=== PATIENT | male | born 1960 | race Caucasian/White ===

== ENCOUNTER → 2017-07-01 | Outpatient (CLI) | payer BC ==
[~2017-07-01] MED LIST: ASP81TEC PO; MULT-963 PO
== END ==
LOC: CARD 08:34
PROVIDERS: ATTEND Physician Assistant
DX: E78.5 Hyperlipidemia, unspecified (principal); E66.9 Obesity, unspecified; R06.09 Other forms of dyspnea
CPT/HCPCS: 93017

== ENCOUNTER 2018-10-19 14:58 | Outpatient (CLI) | payer BC ==
[~2018-10-19] VITALS: Ht 188 cm; Wt 142.4 kg
[2018-10-19 15:08] VITALS: BP 133/79
[2018-10-19 15:46] LABS: BASOPHILS # (AUTO) 0.1 10^3/uL (0.0-0.1); BASOPHILS % (AUTO) 1 % (0-10); EOSINOPHILS # (AUTO) 0.2 10^3/uL (0.0-0.3); EOSINOPHILS % (AUTO) 4 % (0-10); HEMATOCRIT 43 % (40-54); HEMOGLOBIN 14.7 G/DL (13.3-17.7); LYMPHOCYTES # (AUTO) 1.6 X 10^3 (1.0-4.0); LYMPHOCYTES % (AUTO) 26 % (12-44); MEAN CORPUSCULAR HEMOGLOBIN 32 PG (25-34); MEAN CORPUSCULAR HGB CONC 34 G/DL (32-36); MEAN CORPUSCULAR VOLUME 94 FL (80-99); MEAN PLATELET VOLUME 10.4 FL (7.4-10.4); MONOCYTES # (AUTO) 0.7 X 10^3 (0.0-1.0); MONOCYTES % (AUTO) 11 % (0-12); NEUTROPHILS # (AUTO) 3.6 X 10^3 (1.8-7.8); NEUTROPHILS % (AUTO) 58 % (42-75); PLATELET COUNT 240 10^3/uL (130-400); RED CELL DISTRIBUTION WIDTH 13.1 % (10.0-14.5); WHITE BLOOD COUNT 6.2 10^3/uL (4.3-11.0)
[2018-10-19 15:57] LABS: BUN/CREATININE RATIO 18; CALCIUM 9.6 MG/DL (8.5-10.1); CARBON DIOXIDE 25 MMOL/L (21-32); CHLORIDE 104 MMOL/L (98-107); CREATININE SERUM 0.92 MG/DL (0.60-1.30); GFR ESTIMATED > 60; GLUCOSE 118 MG/DL (70-105); POTASSIUM 4.1 MMOL/L (3.6-5.0); SODIUM 140 MMOL/L (135-145)
== END 2018-10-19 15:30 | disposition home or self-care (01) ==
LOC: PREOP 14:58
PROVIDERS: ATTEND Otolaryngology Otolaryngology/Facial Plastic Surgery
DX: Z01.812 Encounter for preprocedural laboratory examination (principal); Z11.2 Encounter for screening for other bacterial diseases; J34.9 Unspecified disorder of nose and nasal sinuses
CPT/HCPCS: 36415; 80048; 85025; 87081

== ENCOUNTER 2018-10-26 06:37 | Day surgery (SDC) | payer BC ==
[~2018-10-26] VITALS: Ht 188 cm; Wt 142.4 kg
--- OUTSIDE RECORDS SUMMARY | 2018-10-26 06:41 | XMS REPORT | CCD ---
Author Author Luisana Herrera Organization Luisana Herrera MD, [facility] Address [address] [place] [address] Phone Care Team Providers Care Quality Consultant Name Role Phone PP Unavailable CCM Unavailable Summary Purpose Interface Exchange Insurance Providers Payer name Policy type / Coverage type Covered democrat ID Effective Begin Date Effective End Date [facility] [id number] Unknown Family history Sister Diagnosis Age At Onset Depression Unknown Father Diagnosis Age At Onset Skin cancer Unknown Alcoholism Unknown Mother Diagnosis Age At Onset Breast cancer Unknown Social History Social History Element Codes Description Effective Dates Marital status Unknown [place] 12/25/2014 Number of children Unknown 1 12/25/2014 Employment Unknown Currently employed [employer] 12/25/[address]: 19235358 Currently smokes tobacco quit 200912/25/[address]: 325732 Currently drinks alcohol 12/25/2014 Allergies, Adverse Reactions, Alerts Substance Reaction Codes Entered Date Inactivated Date Status * NO KNOWN DRUG ALLERGIES Unknown 12/25/2014 No Inactive Date Active Past Medical History Illness Codes Condition Status Onset Date Resolved Date Cough ICD-9: 786.2 ICD-10: R05 Active 10/09/2018 Unknown Other allergic rhinitis ICD-9: 477.8 ICD-10: J30.89 Active 10/09/2018 Unknown Acute bronchitis due to other specified organisms ICD-9: 466.0 ICD-10: J20.8 Active 09/27/2018 Unknown Basal cell carcinoma of skin of nose ICD-9: 173.31 ICD-10: C44.311 Active 08/21/2018 Unknown Other obesity due to excess calories ICD-9: 278.00 ICD-10: E66.09 Active 06/07/2017 Unknown Actinic keratosis ICD- 9: 702.0 ICD-10: L57.0 Active 04/19/2018 Unknown Encounter for screening for cardiovascular disorders ICD-9: V81.2 ICD-10: Z13.6 Active 06/07/2017 Unknown Encounter for screening for malignant neoplasm of prostate ICD-9: V76.44 ICD-10: Z12.5 Active 06/07/2017 Unknown Ganglion, right hand ICD-9: 727.43 ICD-10: M67.441 Active 11/25/2016 Unknown Disorder of the skin and subcutaneous tissue, unspecified ICD-9: 709.9 ICD-10: L98.9 Active 10/27/2015 Unknown Other seborrheic keratosis ICD-9: 702.19 ICD-10: L82.1 Active 10/27/2015 Unknown Routine medical exam ICD-9: V70.0 Active 12/24/2014 Unknown Problems Condition Codes Effective Dates Condition Status Cough ICD-9: 786.2 ICD-10: R05 10/09/2018 Active Other allergic rhinitis ICD-9: 477.8 ICD-10: J30.89 10/09/2018 Active Acute bronchitis due to other specified organisms ICD-9: 466.0 ICD-10: J20.8 09/27/2018 Active Basal cell carcinoma of skin of nose ICD-9: 173.31 ICD-10: C44.311 08/21/2018 Active Other obesity due to excess calories ICD-9: 278.00 ICD-10: E66.09 06/07/2017 Active Actinic keratosis ICD- 9: 702.0 ICD-10: L57.0 04/19/2018 Active Encounter for screening for cardiovascular disorders ICD-9: V81.2 ICD-10: Z13.6 06/07/2017 Active Encounter for screening for malignant neoplasm of prostate ICD-9: V76.44 ICD-10: Z12.5 06/07/2017 Active Ganglion, right hand ICD-9: 727.43 ICD-10: M67.441 11/25/2016 Active Disorder of the skin and subcutaneous tissue, unspecified ICD-9: 709.9 ICD-10: L98.9 10/27/2015 Active Other seborrheic keratosis ICD-9: 702.19 ICD-10: L82.1 10/27/2015 Active Routine medical exam ICD-9: V70.0 12/24/2014 Active Medications Medication Codes Instructions Start Date Stop Date Status Fill Instructions Zithromax Z-Da 250 mg tablet RxNorm: 594541 Tablet(s) PO 2 pills day one and 1 pill day 2-5 10/09/2018 No Stop Date Active prednisone 20 mg tablet RxNorm: 252229 Tablet(s) PO UD 201810/13/2018 Inactive 60,60,40,40,20,20,10,10 doxycycline hyclate 100 mg capsule RxNorm: 4658417 1 Capsule(s) PO BID 09/27/2018 10/03/2018 Inactive Kenalog 40 mg/mL suspension for injection RxNorm: 7189884 Milliliter(s) Inj 09/27/2018 09/27/2018 Inactive prednisone 20 mg tablet RxNorm: 394589 2 Tablet(s) PO daily 10/01/2018 Inactive atorvastatin 10 mg tablet RxNorm: 985609 1 Tablet(s) PO QPM 04/18/2018 Inactive Lipitor 10 mg tablet RxNorm: 471615 1 Tablet(s) PO QPM 201606/07/2017 Inactive Tamiflu 75 mg capsule RxNorm: 852949 1 Capsule(s) PO daily 09/2210/01/2016 Inactive Tamiflu 75 mg capsule RxNorm: 984921 1 Capsule(s) PO daily 09/2209/21/2016 Inactive Zithromax Z-Da 250 mg tablet RxNorm: 682634 Tablet(s) PO 2 pills day one and 1 pill day 2-5 07/25/2015 05/31/2017 Inactive Voltaren 1 % topical gel RxNorm: 301284 2 TOP TID 12/25/2014 08/20/2018 Inactive Bones & Joints oral RxNorm: oral No Start Date 08/20/2018 Inactive Zithromax Z-Da 250 mg tablet RxNorm: 751647 Tablet(s) PO 2 pills day one and 1 pill day 2-5 No Start Date 07/24/2015 Inactive Medication Administered Medication Codes Instructions Start Date Status Kenalog 40 mg/mL suspension for injection RxNorm: 4685655 Milliliter 09/27/2018 No longer Active Immunizations Vaccine Codes Date Status Tetanus, Diptheria, Pertussis CVX: 113 completed Tetanus/Diptheria CVX: 113 12/16/2013 completed Assessments Condition Codes Effective Dates Cough ICD-10: R05 ICD-9: 786.2 10/09/2018 Other allergic rhinitis ICD-10: J30.89 ICD-9: 477.8 10/09/2018 Acute bronchitis due to other specified organisms ICD-10: J20.8 ICD-9: 466.0 09/27/2018 Basal cell carcinoma of skin of nose ICD-10: C44.311 ICD-9: 173.31 08/21/2018 Other obesity due to excess calories ICD-10: E66.09 ICD-9: 278.00 08/21/2018 Actinic keratosis ICD-10: L57.0 ICD-9: 702.0 04/19/2018 Encounter for screening for malignant neoplasm of prostate ICD-10: Z12.5 ICD-9: V76.44 06/07/2017 Encounter for screening for cardiovascular disorders ICD-10 : Z13.6 ICD-9: V81.2 06/07/2017 Ganglion, right hand ICD-10: M67.441 ICD-9: 727.43 11/25/2016 Other seborrheic keratosis ICD-10: L82.1 ICD-9: 702.19 10/28/2015 Disorder of the skin and subcutaneous tissue, unspecified ICD-10: L98.9 ICD-9: 709.9 10/28/2015 Routine medical exam ICD-9: V70.0 2014 Reason For Visit Reason For Visit Effective Dates Notes cough 10/09/2018 cough 09/27/2018 skin lesion 08/21/2018 well man exam (40-65 years) 04/19/2018 weight gain/obesity 06/07/2017 skin lesion 11/25/2016 mole check 10/28/2015 weight gain/obesity 12/25/2014 on back- dad has hx of skin cancer Results No Results data Review of Systems System Result Effective Dates Constitutional recent illness 10/09/2018 Constitutional No chills 10/09/2018 Constitutional No diaphoresis 10/09/2018 Constitutional No fever 10/09/2018 Constitutional fatigue 10/09/2018 Eyes No eye erythema 10/09/2018 Ears/Nose/Throat/Neck nasal allergies Ears/Nose/Throat/Neck No nasal discharge 10/09/2018 Ears/Nose/Throat/Neck No sinus congestion 10/09/2018 Ears/Nose/Throat/Neck No sore throat Ears/Nose/Throat/Neck postnasal drip Cardiovascular No chest pain/pressure Respiratory cough 10/09/2018 Respiratory chest congestion 10/09/2018 Respiratory No dyspnea 10/09/2018 Gastrointestinal No abdominal pain 2018 Neurologic No alteration of consciousness 10/09/2018 Neurologic No mental status change 2018 Constitutional recent illness 09/27/2018 Constitutional No chills 09/27/2018 Constitutional No fever 09/27/2018 Eyes No eye erythema 09/27/2018 Ears/Nose/Throat/Neck nasal allergies Ears/Nose/Throat/Neck nasal discharge Ears/Nose/Throat/Neck postnasal drip Ears/Nose/Throat/Neck sinus congestion Cardiovascular No chest pain/pressure Respiratory productive sputum 09/27/2018 Respiratory cough 09/27/2018 Respiratory wheezing 09/27/2018 Gastrointestinal No abdominal pain 2018 Musculoskeletal No joint complaint 2018 Dermatologic No rash 09/27/2018 Neurologic No alteration of consciousness 09/27/2018 Neurologic No mental status change 2018 Constitutional No recent illness 2018 Constitutional obesity 08/21/2018 Constitutional No chills 08/21/2018 Constitutional No diaphoresis 08/21/2018 Constitutional No fever 08/21/2018 Eyes No blindness 08/21/2018 Ears/Nose/Throat/Neck No nasal allergies 08/21/2018 Ears/Nose/Throat/Neck No nasal discharge 08/21/2018 Cardiovascular No chest pain/pressure 10/2018 Cardiovascular No dyspnea 08/21/2018 Respiratory No chest congestion 2018 Respiratory No cough 08/21/2018 Respiratory No dyspnea 08/21/2018 Gastrointestinal No abdominal pain 2018 Gastrointestinal No constipation 2018 Gastrointestinal No diarrhea 08/21/2018 Gastrointestinal No nausea 08/21/2018 Gastrointestinal No vomiting 08/21/2018 Musculoskeletal No joint complaint 2018 Dermatologic No rash 08/21/2018 Dermatologic skin lesion 08/21/2018 Neurologic No alteration of consciousness 08/21/2018 Neurologic No mental status change 2018 Constitutional No recent illness 2017 Constitutional obesity 04/19/2018 Constitutional No chills 04/19/2018 Constitutional No diaphoresis 04/19/2018 Constitutional No fever 04/19/2018 Eyes No eye erythema 04/19/2018 Ears/Nose/Throat/Neck No nasal allergies 04/19/2018 Ears/Nose/Throat/Neck No nasal discharge 04/19/2018 Cardiovascular No chest pain/pressure 09/2017 Cardiovascular No dyspnea 04/19/2018 Respiratory No chest congestion 2017 Respiratory No cough 04/19/2018 Respiratory No dyspnea 04/19/2018 Gastrointestinal No abdominal pain 2017 Gastrointestinal No constipation 2017 Gastrointestinal No diarrhea 04/19/2018 Gastrointestinal No nausea 04/19/2018 Gastrointestinal No vomiting 04/19/2018 Musculoskeletal No joint complaint 2017 Dermatologic No rash 04/19/2018 Neurologic No alteration of consciousness 04/19/2018 Neurologic No mental status change 2017 Dermatologic skin lesion 04/19/2018 Constitutional No recent illness 2016 Constitutional obesity 06/07/2017 Constitutional No chills 06/07/2017 Constitutional No diaphoresis 06/07/2017 Constitutional No fever 06/07/2017 Eyes No eye erythema 06/07/2017 Ears/Nose/Throat/Neck No nasal allergies 06/07/2017 Ears/Nose/Throat/Neck No nasal discharge 06/07/2017 Cardiovascular No chest pain/pressure Cardiovascular No dyspnea 06/07/2017 Cardiovascular exercise intolerance 06/07 Respiratory No cough 06/07/2017 Respiratory No chest congestion 2016 Respiratory dyspnea on exertion 2016 Respiratory No dyspnea 06/07/2017 Gastrointestinal No abdominal pain 2016 Gastrointestinal No constipation 2016 Gastrointestinal No diarrhea 06/07/2017 Gastrointestinal No vomiting 06/07/2017 Gastrointestinal No nausea 06/07/2017 Musculoskeletal No joint complaint 2016 Dermatologic No rash 06/07/2017 Neurologic No alteration of consciousness 06/07/2017 Neurologic No mental status change 2016 Constitutional No recent illness 2016 Constitutional No diaphoresis 11/25/2016 Constitutional No chills 11/25/2016 Constitutional No fever 11/25/2016 Eyes No eye erythema 11/25/2016 Ears/Nose/Throat/Neck No nasal allergies 11/25/2016 Ears/Nose/Throat/Neck No nasal discharge 11/25/2016 Cardiovascular No chest pain/pressure 05/2017 Cardiovascular No dyspnea 11/25/2016 Respiratory No cough 11/25/2016 Respiratory No dyspnea 11/25/2016 Gastrointestinal No abdominal pain 2016 Dermatologic cyst 11/25/2016 Neurologic No alteration of consciousness 11/25/2016 Neurologic No mental status change 2016 Constitutional No recent illness 2015 Eyes No eye erythema 10/28/2015 Eyes No vision change 10/28/2015 Ears/Nose/Throat/Neck No sore throat 06/2016 Ears/Nose/Throat/Neck No postnasal drip 10/28/2015 Ears/Nose/Throat/Neck No sinus congestion 10/28/2015 Cardiovascular No chest pain/pressure 06/2016 Respiratory No cough 10/28/2015 Gastrointestinal No vomiting 10/28/2015 Psychiatric No anxiety 10/28/2015 Psychiatric No depression 10/28/2015 Ears/Nose/Throat/Neck No hoarseness 10/27 Cardiovascular No dyspnea 10/28/2015 Dermatologic skin lesion 10/28/2015 Neurologic No alteration of consciousness 10/28/2015 Neurologic No mental status change 2015 Constitutional No recent illness 2014 Constitutional No chills 12/25/2014 Constitutional No fatigue 12/25/2014 Constitutional No fever 12/25/2014 Constitutional No insomnia 12/25/2014 Constitutional No malaise 12/25/2014 Eyes No blindness 12/25/2014 Eyes No vision change 12/25/2014 Ears/Nose/Throat/Neck No dental pain 04/2015 Ears/Nose/Throat/Neck No dizziness 2014 Ears/Nose/Throat/Neck No dysphagia 2014 Ears/Nose/Throat/Neck No headache 2014 Ears/Nose/Throat/Neck No hearing loss 04/2015 Ears/Nose/Throat/Neck No nasal allergies 12/25/2014 Ears/Nose/Throat/Neck No sore throat 04/2015 Ears/Nose/Throat/Neck No postnasal drip 12/25/2014 Ears/Nose/Throat/Neck No sinus congestion 12/25/2014 Cardiovascular No chest pain/pressure 04/2015 Cardiovascular No dyspnea 12/25/2014 Cardiovascular No edema 12/25/2014 Cardiovascular No exercise intolerance Cardiovascular No fatigue 12/25/2014 Cardiovascular No near-syncope/dizziness 12/25/2014 Respiratory No chest tightness 2014 Respiratory No cough 12/25/2014 Respiratory No dyspnea 12/25/2014 Respiratory No pedal edema 12/25/2014 Gastrointestinal No abdominal pain 2014 Gastrointestinal No constipation 2014 Gastrointestinal No diarrhea 12/25/2014 Gastrointestinal No gastroesophageal reflux 12/25/2014 Gastrointestinal No nausea 12/25/2014 Gastrointestinal No vomiting 12/25/2014 Genitourinary/Nephrology No dysuria 12/25 Genitourinary/Nephrology No nocturia 04/2015 Genitourinary/Nephrology No urinary incontinence 12/25/2014 Musculoskeletal stiffness 12/25/2014 Musculoskeletal No swelling 12/25/2014 Musculoskeletal No muscle weakness 2014 Musculoskeletal No myalgias 12/25/2014 Dermatologic No rash 12/25/2014 Dermatologic No sores 12/25/2014 Dermatologic No scar 12/25/2014 Neurologic No dizziness 12/25/2014 Neurologic No headache 12/25/2014 Neurologic No neck pain 12/25/2014 Neurologic No syncope 12/25/2014 Psychiatric No anxiety 12/25/2014 Psychiatric No depression 12/25/2014 Musculoskeletal arthralgia(s) 12/25/2014 Physical Exam Exam Name System Name Item Name Status Result Effective Dates Notes Full Exam - General 1994 Constitutional general appearance Overall: well developed 10/09/2018 None Full Exam - General 1994 Constitutional general appearance Overall: in no acute distress 10/09/2018 None Full Exam - General 1994 Constitutional general appearance Overall: well nourished 10/09/2018 None Full Exam - General 1994 Eyes conjunctiva /eyelids Overall: conjunctiva clear 10/09/2018 None Full Exam - General 1994 Eyes conjunctiva /eyelids Overall: cornea clear 10/09/2018 None Full Exam - General 1994 Eyes conjunctiva /eyelids Overall: eyelids normal 10/09/2018 None Full Exam - General 1994 Ears/Nose/Throat otoscopic exam Overall: tympanic membranes clear 10/09/2018 None Full Exam - General 1994 Ears/Nose/Throat otoscopic exam Overall: external auditory canals clear 10/09/2018 None Full Exam - General 1994 Ears/Nose/Throat lips/teeth/gingiva Overall: benign lips 10/09/2018 None Full Exam - General 1994 Ears/Nose/Throat oral cavity/pharynx/larynx Overall: oral mucosa clear 10/09/2018 None Full Exam - General 1994 Ears/Nose/Throat oral cavity/pharynx/larynx Overall: oropharyngeal mucosa clear 10/09/2018 None Full Exam - General 1994 Ears/Nose/Throat oral cavity/pharynx/larynx Posterior Pharynx: clear post nasal drainage 10/09/2018 None Full Exam - General 1994 Respiratory respiratory effort/rhythm Overall: normal rate 10/09/2018 None Full Exam - General 1994 Respiratory respiratory effort/rhythm Overall: no retractions 10/09/2018 None Full Exam - General 1994 Respiratory auscultation Overall: breath sounds clear bilaterally 10/09/2018 None Full Exam - General 1994 Respiratory auscultation Diffuse: diminished 10/09/2018 None Full Exam - General 1994 Cardiovascular auscultation of heart Overall: regular rate 10/09/2018 None Full Exam - General 1994 Cardiovascular auscultation of heart Overall: normal heart sounds 10/09/2018 None Full Exam - General 1994 Musculoskeletal head and neck Overall: head atraumatic 10/09/2018 None Full Exam - General 1994 Musculoskeletal gait and station Overall: normal gait 10/09/2018 None Full Exam - General 1994 Musculoskeletal gait and station Overall: normal station 10/09/2018 None Full Exam - General 1994 Neurologic cranial nerves Overall: crainial nerves 2 - 12 grossly intact 10/09/2018 None Full Exam - General 1994 Psychiatric orientation/consciousness Overall: oriented to person, place and time 10/09/2018 None Full Exam - General 1994 Psychiatric mood and affect Overall: normal mood and affect 10/09/2018 None Full Exam - General 1994 Constitutional general appearance Overall: well developed 09/27/2018 None Full Exam - General 1994 Constitutional general appearance Overall: in no acute distress 09/27/2018 None Full Exam - General 1994 Constitutional general appearance Overall: well nourished 09/27/2018 None Full Exam - General 1994 Eyes conjunctiva /eyelids Overall: conjunctiva clear 09/27/2018 None Full Exam - General 1994 Eyes conjunctiva /eyelids Overall: eyelids normal 09/27/2018 None Full Exam - General 1994 Ears/Nose/Throat otoscopic exam Overall: external auditory canals clear 09/27/2018 None Full Exam - General 1994 Ears/Nose/Throat otoscopic exam Tympanic membrane: air- fluid level 09/27/2018 None Full Exam - General 1995 Ears/Nose/Throat lips/teeth/gingiva Overall: benign lips 09/27/2018 None Full Exam - General 1995 Ears/Nose/Throat oral cavity/pharynx/larynx Overall: oral mucosa clear 09/27/2018 None Full Exam - General 1995 Ears/Nose/Throat oral cavity/pharynx/larynx Posterior Pharynx: clear post nasal drainage 09/27/2018 None Full Exam - General 1994 Respiratory auscultation Diffuse: diminished 09/27/2018 None Full Exam - General 1994 Respiratory auscultation Lower lung field: expiratory wheezes 09/27/2018 faint Full Exam - General 1994 Respiratory respiratory effort/rhythm Overall: no retractions 09/27/2018 None Full Exam - General 1994 Respiratory respiratory effort/rhythm Overall: normal rate 09/27/2018 None Full Exam - General 1994 Cardiovascular auscultation of heart Overall: regular rate 09/27/2018 None Full Exam - General 1994 Cardiovascular auscultation of heart Overall: normal heart sounds 09/27/2018 None Full Exam - General 1994 Lymphatic neck nodes Overall: anterior cervical chain benign 09/27/2018 None Full Exam - General 1994 Lymphatic neck nodes Overall: posterior cervical chain benign 09/27/2018 None Full Exam - General 1994 Integument inspection of skin Overall: few scattered moles, no gross abnormalities 09/27/2018 None Full Exam - General 1994 Neurologic cranial nerves Overall: crainial nerves 2 - 12 grossly intact 09/27/2018 None Full Exam - General 1994 Psychiatric orientation/consciousness Overall: oriented to person, place and time 09/27/2018 None Full Exam - General 1994 Psychiatric mood and affect Overall: normal mood and affect 09/27/2018 None Full Exam - General 1994 Constitutional general appearance Overall: well developed 08/21/2018 None Full Exam - General 1994 Constitutional general appearance Overall: in no acute distress 08/21/2018 None Full Exam - General 1994 Constitutional general appearance Overall: well nourished 08/21/2018 None Full Exam - General 1994 Constitutional general appearance Hygiene/Attention to Grooming: good hygiene 08/21/2018 None Full Exam - General 1994 Eyes conjunctiva /eyelids Overall: conjunctiva clear 08/21/2018 None Full Exam - General 1995 Eyes conjunctiva /eyelids Overall: cornea clear 08/21/2018 None Full Exam - General 1994 Eyes conjunctiva /eyelids Overall: eyelids normal 08/21/2018 None Full Exam - General 1994 Eyes pupils and irises Overall: pupils equal, round, reactive to light and accomodation 08/21/2018 None Full Exam - General 1994 Ears/Nose/Throat otoscopic exam Overall: external auditory canals clear 08/21/2018 None Full Exam - General 1994 Ears/Nose/Throat otoscopic exam Overall: tympanic membranes clear 08/21/2018 None Full Exam - General 1994 Ears/Nose/Throat lips/teeth/gingiva Overall: benign lips 08/21/2018 None Full Exam - General 1994 Ears/Nose/Throat oral cavity/pharynx/larynx Overall: oral mucosa clear 08/21/2018 None Full Exam - General 1994 Ears/Nose/Throat oral cavity/pharynx/larynx Overall: oropharyngeal mucosa clear 08/21/2018 None Full Exam - General 1994 Respiratory auscultation Overall: breath sounds clear bilaterally 08/21/2018 None Full Exam - General 1994 Respiratory respiratory effort/rhythm Overall: no retractions 08/21/2018 None Full Exam - General 1994 Respiratory respiratory effort/rhythm Overall: normal rate 08/21/2018 None Full Exam - General 1994 Cardiovascular extremities Overall: no clubbing 08/21/2018 None Full Exam - General 1994 Cardiovascular auscultation of heart Overall: regular rate 08/21/2018 None Full Exam - General 1994 Cardiovascular auscultation of heart Overall: normal heart sounds 08/21/2018 None Full Exam - General 1994 Abdomen abdominal exam Overall: no tenderness 08/21/2018 None Full Exam - General 1994 Abdomen abdominal exam Overall: normal bowel sounds 08/21/2018 None Full Exam - General 1994 Lymphatic neck nodes Overall: anterior cervical chain benign 08/21/2018 None Full Exam - General 1994 Lymphatic neck nodes Overall: posterior cervical chain benign 08/21/2018 None Full Exam - General 1994 Musculoskeletal spine, ribs and pelvis Overall: good posture 08/21/2018 None Full Exam - General 1994 Musculoskeletal gait and station Overall: normal gait 08/21/2018 None Full Exam - General 1994 Musculoskeletal gait and station Overall: normal station 08/21/2018 None Full Exam - General 1994 Musculoskeletal head and neck Overall: head atraumatic 08/21/2018 None Full Exam - General 1994 Integument inspection of skin Location: face 08/21/2018 left lateral nose - [place] Full Exam - General 1994 Neurologic cranial nerves Overall: crainial nerves 2 - 12 grossly intact 08/21/2018 None Full Exam - General 1994 Psychiatric orientation/consciousness Overall: oriented to person, place and time 08/21/2018 None Full Exam - General 1994 Psychiatric mood and affect Overall: normal mood and affect 08/21/2018 None Full Exam - General 1994 Psychiatric appearance Overall: well-groomed, good eye contact 08/21/2018 None Full Exam - General 1994 Constitutional general appearance Overall: well developed 04/19/2018 None Full Exam - General 1994 Constitutional general appearance Overall: in no acute distress 04/19/2018 None Full Exam - General 1994 Constitutional general appearance Overall: well nourished 04/19/2018 None Full Exam - General 1994 Constitutional general appearance Hygiene/Attention to Grooming: good hygiene 04/19/2018 None Full Exam - General 1994 Eyes conjunctiva /eyelids Overall: conjunctiva clear 04/19/2018 None Full Exam - General 1994 Eyes conjunctiva /eyelids Overall: cornea clear 04/19/2018 None Full Exam - General 1994 Eyes conjunctiva /eyelids Overall: eyelids normal 04/19/2018 None Full Exam - General 1994 Eyes pupils and irises Overall: pupils equal, round, reactive to light and accomodation 04/19/2018 None Full Exam - General 1994 Ears/Nose/Throat otoscopic exam Overall: external auditory canals clear 04/19/2018 None Full Exam - General 1994 Ears/Nose/Throat otoscopic exam Overall: tympanic membranes clear 04/19/2018 None Full Exam - General 1994 Ears/Nose/Throat lips/teeth/gingiva Overall: benign lips 04/19/2018 None Full Exam - General 1994 Ears/Nose/Throat oral cavity/pharynx/larynx Overall: oral mucosa clear 04/19/2018 None Full Exam - General 1994 Ears/Nose/Throat oral cavity/pharynx/larynx Overall: oropharyngeal mucosa clear 04/19/2018 None Full Exam - General 1994 Respiratory auscultation Overall: breath sounds clear bilaterally 04/19/2018 None Full Exam - General 1994 Respiratory respiratory effort/rhythm Overall: no retractions 04/19/2018 None Full Exam - General 1994 Respiratory respiratory effort/rhythm Overall: normal rate 04/19/2018 None Full Exam - General 1994 Cardiovascular extremities Overall: no clubbing 04/19/2018 None Full Exam - General 1994 Cardiovascular auscultation of heart Overall: regular rate 04/19/2018 None Full Exam - General 1994 Cardiovascular auscultation of heart Overall: normal heart sounds 04/19/2018 None Full Exam - General 1994 Abdomen abdominal exam Overall: no tenderness 04/19/2018 None Full Exam - General 1994 Abdomen abdominal exam Overall: normal bowel sounds 04/19/2018 None Full Exam - General 1994 Lymphatic neck nodes Overall: anterior cervical chain benign 04/19/2018 None Full Exam - General 1994 Lymphatic neck nodes Overall: posterior cervical chain benign 04/19/2018 None Full Exam - General 1994 Musculoskeletal spine, ribs and pelvis Overall: good posture 04/19/2018 None Full Exam - General 1994 Musculoskeletal gait and station Overall: normal gait 04/19/2018 None Full Exam - General 1994 Musculoskeletal gait and station Overall: normal station 04/19/2018 None Full Exam - General 1994 Musculoskeletal head and neck Overall: head atraumatic 04/19/2018 None Full Exam - General 1994 Neurologic cranial nerves Overall: crainial nerves 2 - 12 grossly intact 04/19/2018 None Full Exam - General 1994 Psychiatric orientation/consciousness Overall: oriented to person, place and time 04/19/2018 None Full Exam - General 1994 Psychiatric mood and affect Overall: normal mood and affect 04/19/2018 None Full Exam - General 1994 Psychiatric appearance Overall: well-groomed, good eye contact 04/19/2018 None Full Exam - General 1994 Integument inspection of skin Location: face 04/19/2018 left lateral nose - [place] Full Exam - General 1994 Constitutional general appearance Hygiene/Attention to Grooming: good hygiene 06/07/2017 None Full Exam - General 1994 Eyes conjunctiva /eyelids Overall: conjunctiva clear 06/07/2017 None Full Exam - General 1994 Eyes conjunctiva /eyelids Overall: cornea clear 06/07/2017 None Full Exam - General 1994 Eyes conjunctiva /eyelids Overall: eyelids normal 06/07/2017 None Full Exam - General 1994 Eyes pupils and irises Overall: pupils equal, round, reactive to light and accomodation 06/07/2017 None Full Exam - General 1994 Ears/Nose/Throat otoscopic exam Overall: external auditory canals clear 06/07/2017 None Full Exam - General 1994 Ears/Nose/Throat otoscopic exam Overall: tympanic membranes clear 06/07/2017 None Full Exam - General 1994 Ears/Nose/Throat lips/teeth/gingiva Overall: benign lips 06/07/2017 None Full Exam - General 1994 Ears/Nose/Throat oral cavity/pharynx/larynx Overall: oral mucosa clear 06/07/2017 None Full Exam - General 1994 Ears/Nose/Throat oral cavity/pharynx/larynx Overall: oropharyngeal mucosa clear 06/07/2017 None Full Exam - General 1994 Respiratory auscultation Overall: breath sounds clear bilaterally 06/07/2017 None Full Exam - General 1994 Respiratory respiratory effort/rhythm Overall: no retractions 06/07/2017 None Full Exam - General 1994 Respiratory respiratory effort/rhythm Overall: normal rate 06/07/2017 None Full Exam - General 1994 Cardiovascular extremities Overall: no clubbing 06/07/2017 None Full Exam - General 1994 Cardiovascular auscultation of heart Overall: regular rate 06/07/2017 None Full Exam - General 1994 Cardiovascular auscultation of heart Overall: normal heart sounds 06/07/2017 None Full Exam - General 1994 Abdomen abdominal exam Overall: no tenderness 06/07/2017 None Full Exam - General 1994 Abdomen abdominal exam Overall: normal bowel sounds 06/07/2017 None Full Exam - General 1994 Lymphatic neck nodes Overall: anterior cervical chain benign 06/07/2017 None Full Exam - General 1994 Lymphatic neck nodes Overall: posterior cervical chain benign 06/07/2017 None Full Exam - General 1994 Musculoskeletal spine, ribs and pelvis Overall: good posture 06/07/2017 None Full Exam - General 1994 Musculoskeletal head and neck Overall: head atraumatic 06/07/2017 None Full Exam - General 1994 Neurologic cranial nerves Overall: crainial nerves 2 - 12 grossly intact 06/07/2017 None Full Exam - General 1994 Psychiatric orientation/consciousness Overall: oriented to person, place and time 06/07/2017 None Full Exam - General 1994 Psychiatric mood and affect Overall: normal mood and affect 06/07/2017 None Full Exam - General 1994 Constitutional general appearance Overall: well developed 06/07/2017 None Full Exam - General 1994 Constitutional general appearance Overall: in no acute distress 06/07/2017 None Full Exam - General 1994 Constitutional general appearance Overall: well nourished 06/07/2017 None Full Exam - General 1994 Musculoskeletal gait and station Overall: normal gait 06/07/2017 None Full Exam - General 1994 Musculoskeletal gait and station Overall: normal station 06/07/2017 None Full Exam - General 1994 Psychiatric appearance Overall: well-groomed, good eye contact 06/07/2017 None Full Exam - Dermatology Constitutional general appearance Overall: well nourished 11/25/2016 None Full Exam - Dermatology Constitutional general appearance Overall: well developed 11/25/2016 None Full Exam - Dermatology Constitutional general appearance Overall: in no acute distress 11/25/2016 None Full Exam - Dermatology Eyes conjunctiva/ eyelids Overall: clear conjunctiva bilaterally 11/25/2016 None Full Exam - Dermatology Eyes conjunctiva/ eyelids Overall: normal eyelids 11/25/2016 None Full Exam - Dermatology Ears/Nose/Throat lips/teeth/gingiva Overall: benign lips 11/25/2016 None Full Exam - Dermatology Ears/Nose/Throat oropharynx Overall: clear oral mucosa 11/25/2016 None Full Exam - Dermatology Respiratory auscultation Overall: breath sounds clear bilaterally 11/25/2016 None Full Exam - Dermatology Respiratory respiratory effort/rhythm Overall: no retractions 11/25/2016 None Full Exam - Dermatology Respiratory respiratory effort/rhythm Overall: normal rate 11/25/2016 None Full Exam - Dermatology Musculoskeletal gait and station Overall: normal gait 11/25/2016 None Full Exam - Dermatology Musculoskeletal gait and station Overall: normal station 11/25/2016 None Full Exam - Dermatology Musculoskeletal spine, ribs and pelvis Overall: good posture 11/25/2016 None Full Exam - Dermatology Musculoskeletal head and neck Overall: head atraumatic 11/25/2016 None Full Exam - Dermatology Integument insp & palp - right upper extremity Lesion: cyst 11/25/2016 ganglion Full Exam - Dermatology Integument insp & palp - right upper extremity Location: on the fingers 11/25/2016 None Full Exam - Dermatology Integument insp & palp - right upper extremity Consistency: non-tender 11/25/2016 None Full Exam - Dermatology Psychiatric orientation Overall: oriented to person, place and time 11/25/2016 None Full Exam - Dermatology Psychiatric mood and affect Overall: normal mood and affect 11/25/2016 None Full Exam - General 1994 Constitutional general appearance Development: well developed 10/28/2015 None Full Exam - General 1994 Constitutional general appearance Development: appears stated age 0410/28/2015 None Full Exam - General 1994 Constitutional general appearance Hygiene/Attention to Grooming: good hygiene 10/28/2015 None Full Exam - General 1994 Eyes conjunctiva /eyelids Overall: conjunctiva clear 10/28/2015 None Full Exam - General 1994 Eyes conjunctiva /eyelids Overall: cornea clear 10/28/2015 None Full Exam - General 1994 Eyes conjunctiva /eyelids Overall: eyelids normal 10/28/2015 None Full Exam - General 1994 Eyes pupils and irises Overall: pupils equal, round, reactive to light and accomodation 10/28/2015 None Full Exam - General 1994 Ears/Nose/Throat lips/teeth/gingiva Overall: benign lips 10/28/2015 None Full Exam - General 1994 Ears/Nose/Throat lips/teeth/gingiva Overall: normal dentition 10/28/2015 None Full Exam - General 1994 Respiratory respiratory effort/rhythm Overall: no retractions 10/28/2015 None Full Exam - General 1994 Respiratory respiratory effort/rhythm Overall: normal rate 10/28/2015 None Full Exam - General 1994 Musculoskeletal spine, ribs and pelvis Overall: good posture 10/28/2015 None Full Exam - General 1994 Neurologic cranial nerves Overall: crainial nerves 2 - 12 grossly intact 10/28/2015 None Full Exam - General 1994 Psychiatric orientation/consciousness Overall: oriented to person, place and time 10/28/2015 None Full Exam - General 1994 Psychiatric mood and affect Overall: normal mood and affect 10/28/2015 None Full Exam - General 1994 Integument inspection of skin Location: back 10/28/2015 3 seborrheic keratosis on left midline , midline, and right midline back - left midline, and midline lesions approximately dime sized, with even pigmentation, right midline lesion approximately dime sized, with erythematous base. Full Exam - General 1994 Constitutional general appearance Development: well developed 12/25/2014 None Full Exam - General 1994 Constitutional general appearance Development: appears stated age 0612/25/2014 None Full Exam - General 1994 Constitutional general appearance Hygiene/Attention to Grooming: good hygiene 12/25/2014 None Full Exam - General 1994 Eyes conjunctiva /eyelids Overall: conjunctiva clear 12/25/2014 None Full Exam - General 1994 Eyes conjunctiva /eyelids Overall: cornea clear 12/25/2014 None Full Exam - General 1994 Eyes conjunctiva /eyelids Overall: eyelids normal 12/25/2014 None Full Exam - General 1994 Eyes pupils and irises Overall: pupils equal, round, reactive to light and accomodation 12/25/2014 None Full Exam - General 1994 Ears/Nose/Throat otoscopic exam Overall: external auditory canals clear 12/25/2014 None Full Exam - General 1994 Ears/Nose/Throat otoscopic exam Overall: tympanic membranes clear 12/25/2014 None Full Exam - General 1994 Ears/Nose/Throat lips/teeth/gingiva Overall: benign lips 12/25/2014 None Full Exam - General 1994 Ears/Nose/Throat lips/teeth/gingiva Overall: normal dentition 12/25/2014 None Full Exam - General 1994 Ears/Nose/Throat oral cavity/pharynx/larynx Overall: oral mucosa clear 12/25/2014 None Full Exam - General 1994 Ears/Nose/Throat oral cavity/pharynx/larynx Overall: oropharyngeal mucosa clear 12/25/2014 None Full Exam - General 1994 Ears/Nose/Throat oral cavity/pharynx/larynx Overall: hypopharynx benign 12/25/2014 None Full Exam - General 1994 Ears/Nose/Throat oral cavity/pharynx/larynx Overall: no masses 12/25/2014 None Full Exam - General 1994 Respiratory auscultation Overall: breath sounds clear bilaterally 12/25/2014 None Full Exam - General 1994 Respiratory respiratory effort/rhythm Overall: no retractions 12/25/2014 None Full Exam - General 1994 Respiratory respiratory effort/rhythm Overall: normal rate 12/25/2014 None Full Exam - General 1994 Cardiovascular extremities Overall: no clubbing 12/25/2014 None Full Exam - General 1994 Cardiovascular auscultation of heart Overall: regular rate 12/25/2014 None Full Exam - General 1994 Cardiovascular auscultation of heart Overall: normal heart sounds 12/25/2014 None Full Exam - General 1994 Abdomen abdominal exam Overall: no tenderness 12/25/2014 None Full Exam - General 1994 Abdomen abdominal exam Overall: normal bowel sounds 12/25/2014 None Full Exam - General 1994 Lymphatic neck nodes Overall: anterior cervical chain benign 12/25/2014 None Full Exam - General 1994 Lymphatic neck nodes Overall: posterior cervical chain benign 12/25/2014 None Full Exam - General 1994 Musculoskeletal spine, ribs and pelvis Overall: spine benign 12/25/2014 None Full Exam - General 1994 Musculoskeletal spine, ribs and pelvis Overall: sacroiliac joint benign 12/25/2014 None Full Exam - General 1994 Musculoskeletal spine, ribs and pelvis Overall: good posture 12/25/2014 None Full Exam - General 1994 Musculoskeletal head and neck Overall: head atraumatic 12/25/2014 None Full Exam - General 1994 Musculoskeletal head and neck Overall: cervical spine benign 12/25/2014 None Full Exam - General 1994 Integument inspection of skin Overall: few scattered moles, no gross abnormalities 12/25/2014 None Full Exam - General 1994 Neurologic deep tendon reflexes Overall: deep tendon reflexes intact 12/25/2014 None Full Exam - General 1994 Neurologic cranial nerves Overall: crainial nerves 2 - 12 grossly intact 12/25/2014 None Full Exam - General 1994 Psychiatric orientation/consciousness Overall: oriented to person, place and time 12/25/2014 None Full Exam - General 1994 Psychiatric mood and affect Overall: normal mood and affect 12/25/2014 None Full Exam - General 1994 Musculoskeletal upper extremity Inspection - shoulder: a normal exam 12/25/2014 None Full Exam - General 1994 Musculoskeletal upper extremity Palpation - shoulder: tenderness @ subacromial space 12/25/2014 None Full Exam - General 1994 Musculoskeletal upper extremity Palpation - shoulder: tenderness @ bicipital groove 12/25/2014 None Procedures Procedure Codes Date TRIAMCINOLONE ACET INJ NOS CPT-4: J3301 09/27/2018 Vital Signs Date Vital 10/09/2018 Blood Pressure 1: 122/78 Code : 8480-6 Heart Rate 1: 62 bpm Height: SpO2: 97% Weight: 09/27/2018 Blood Pressure 1: 126/78 Code : 8480-6 BMI: 39.7 Code : 77577-1 Heart Rate 1 : 78 bpm Height: 6'2" SpO2: 98% Weight: 309 lbs 08/21/2018 Blood Pressure 1: 112/76 Code : 8480-6 BMI: 39.7 Code : 39427-1 Heart Rate 1 : 71 bpm Height: 6'2" SpO2: 92% Weight: 309 lbs 04/19/2018 Blood Pressure 1: 134/68 Code : 8480-6 BMI: 37.0 Code : 07711-4 Heart Rate 1 : 80 bpm Height: 6'2" SpO2: 96% Weight: 288 lbs 06/07/2017 Blood Pressure 1: 130/76 Code : 8480-6 BMI: 38.5 Code : 66399-8 Heart Rate 1 : 74 bpm Height: 6'2" SpO2: 98% Weight: 300 lbs 11/25/2016 Blood Pressure 1: 122/64 Code : 8480-6 BMI: 37.7 Code : 89850-4 Heart Rate 1 : 63 bpm Height: 6'2" SpO2: 97% Weight: 294 lbs 10/28/2015 Blood Pressure 1: 124/82 Code : 8480-6 BMI: 35.7 Code : 80507-0 Heart Rate 1 : 71 bpm Height: 6'2" SpO2: 97% Weight: 278 lbs 12/25/2014 Blood Pressure 1: 124/72 Code : 8480-6 BMI: 35.8 Code : 38029-6 Heart Rate 1 : 70 bpm Height: 6'2" Weight: 279 lbs Functional Status No Functional Status data History of Present Illness Symptom Name Status Result Effective Date Notes Location in the lung 10/09/2018 None Quality acute 2018 None Pertinent Findings Denies fever 10/09/2018 None Location in the lung 09/27/2018 None Quality acute 2018 None Onset and Resolution sudden in onset 09/27/2018 None Pertinent Findings Denies fever 09/27/2018 None Location maxillary sinuses 09/27/2018 None Quality acute 2018 None Pertinent Findings Denies fever 09/27/2018 None Pertinent Findings cough 09/27/2018 None Location Nose 2018 None Onset and Resolution ongoing 08/21/2018 None Onset of Symptom Denies 1+ years ago 08/21/2018 None Triggers no known associated factors 08/21/2018 None Quality enlarging 10/2018 None well man exam (40-65 years) Control partner with hysterectomy 04/19/2018 None well man exam (40-65 years) Nutrition and Exercise overweight 04/19/2018 None well man exam (40-65 years) Nutrition and Exercise regular diet 04/19/2018 None skin lesion Onset and Resolution gradual in onset 04/19/2018 None skin lesion Onset of Symptom 3 months ago 04/19/2018 None skin lesion Location Nose 04/19/2018 None skin lesion Quality enlarging 04/19/2018 None skin lesion Quality firm 04/19/2018 None skin lesion Quality non-tender 04/19/2018 None weight gain/obesity Location globally 06/07/2017 None weight gain/obesity Quality chronic 06/07/2017 None weight gain/obesity Onset and Resolution ongoing 06/07/2017 None weight gain/obesity Pertinent Findings dyspnea 06/07/2017 intermittent skin lesion Onset and Resolution gradual in onset 11/25/2016 None skin lesion Onset of Symptom 4 months ago 11/25/2016 None skin lesion Frequency of Episodes daily 11/25/2016 None skin lesion Location finger and/or fingers of right hand 11/25/2016 None skin lesion Quality enlarging 11/25/2016 None skin lesion Quality non-tender 11/25/2016 None skin lesion Quality raised 11/25/2016 None skin lesion Quality rubbery 11/25/2016 None skin lesion Quality smooth 11/25/2016 None skin lesion Quality worsening 11/25/2016 None mole check Location-Major on the back 10/28/2015 None mole check Number of Moles >10 moles 10/28/2015 3 mole check Changing Moles changing 10/28/2015 None mole check Changing Moles becoming thicker 10/28/2015 None mole check Onset and Resolution ongoing 10/28/2015 None mole check Color brown 10/28/2015 None mole check Color flesh-colored 10/28/2015 None mole check Pertinent Findings itching 10/28/2015 None weight gain/obesity Location globally 12/25/2014 None shoulder pain Quality intermittent 12/25/2014 None shoulder pain Onset and Resolution gradual in onset 12/25/2014 None shoulder pain Onset of Symptom _ years ago 12/25/2014 None shoulder pain Pertinent Findings Denies loss of range of motion 12/25/2014 None shoulder pain Pertinent Findings stiffness 12/25/2014 None shoulder pain Pertinent Findings limited range of motion 12/25/2014 None shoulder pain Pertinent Findings loss of strength 12/25/2014 None mole check Location-Major on the upper body 12/25/2014 None mole check Location-Trunk on the upper back 12/25/2014 None mole check Pertinent Findings Denies pain 12/25/2014 None mole check Pertinent Findings itching 12/25/2014 None Advance Directives No Advance Directive data Encounters Encounter Performer Location Codes Date EST. PATIENT, LEVEL III Diagnosis: Cough[ICD10: R05] Diagnosis: Other allergic rhinitis[ICD10: J30.89] Daly Herrera MD, [facility] CPT-4: 09306 10/09/2018 [id number] EST. PATIENT, LEVEL IV Diagnosis: Acute bronchitis due to other specified organisms[ICD10: J20.8] [facility] CPT-4: 04792 09/27/2018 ([id number]) 25010 EST. PATIENT, LEVEL III Diagnosis: Basal cell carcinoma of skin of nose[ICD10: C44.311] Diagnosis: Other obesity due to excess calories[ICD10: E66.09] Luisana Herrera MD, [facility] CPT-4: 21397 08/21/2018 [id number] EST. PATIENT, LEVEL III Diagnosis: Other obesity due to excess calories[ICD10: E66.09] Diagnosis: Actinic keratosis[ICD10: L57.0] Daly Herrera MD, [facility] CPT-4 : 20798 04/19/2018 ([id number]) PREV VISIT EST AGE 40-64 Diagnosis: Encounter for screening for cardiovascular disorders[ICD10: Z13.6] Diagnosis: Encounter for screening for malignant neoplasm of prostate[ICD10: Z12.5] Diagnosis: Other obesity due to excess calories[ICD10: E66.09] [facility] CPT-4: 60003 06/07/2017 [id number] EST. PATIENT, LEVEL III Diagnosis: Ganglion, right hand[ICD10: M67.441] Daly Herrera MD, [facility] CPT-4: 54663 11/25/2016 [id number] EST. PATIENT, LEVEL IV Diagnosis: Other seborrheic keratosis[ICD10: L82.1] Diagnosis: Disorder of the skin and subcutaneous tissue, unspecified[ICD10: L98.9] Daly Herrera MD, [facility] CPT-4: 84770 2015 ([id number]) PREV VISIT NEW AGE 40-64 Diagnosis: Routine medical exam[ICD9: V70.0] Luisana Herrera MD, [facility] CPT-4: 85870 12/25/2014 Plan of Care Planned Activity Notes Codes Status Date Visit Plan: Allergies - chronic - recommended pt to use allergy medication as prescribed. Pt has been counseled as to the appropriate use of the medication. Pt to call if allergy symptoms are not controlled with the medication. If using nasal spray, instructions as follows: Nasal spray- use twice daily, one spray per nostril twice daily, after 30 minutes, rinse out nose with saline spray.. Use opposite hand per nostril to spray in the nasal steroid allergy spray. URI - Pt advised to increase fluids, vitamin C. Discussed natural and expected course of this diagnosis and need to alert me if symptoms do not follow expected course, or if any worse. RX sent to patient's pharmacy. 10/09/2018 Appointment: Daly Stallings WPtel: [address] [place], [place] [id number] (30 min) Complex 10/09/2018 Patient Education: Patient Medication Summary Completed 10/09/2018 Visit Plan: Bronchitis - acute case of bronchitis identified. Pt has been given antibiotics, breathing treatments as appropriate, and pt has been instructed to call if symptoms are not improved, or if symptoms acutely worsen. 09/27/2018 Appointment: Daly Stallings WPtel[facility] ([facility] min) Complex 09/27/2018 Patient Education: Patient Medication Summary Completed 09/27/2018 Visit Plan: Skin lesion left nare - - referral to Dr. Butt for excision of the lesion on the nose. appt will be 09/02/18 @ [facility]. Obesity - chronic issue with this patient. The pt has been counseled about diet changes, calorie restriction, and need to exercise. RTC for weight check 08/21/2018 Appointment: Luisana Herrera WPtel: [facility] (15 min) Moderate 08/21/2018 Patient Education: Patient Medication Summary Completed 08/21/2018 Patient Education: Obesity Completed 08/21/2018 Visit Plan: AK - left nose - Cryotherapy of skin lesions - three cryotherapy on each lesion, dressed with neosporin and monitor lesions. Obesity - chronic issue with this patient. The pt has been counseled about diet changes, calorie restriction, and need to exercise. Pt will RTC in one month for weight check. 04/19/2018 Appointment: Daly Stallings WPtel: [facility] (15 min) Moderate 04/19/2018 Patient Education: Patient Medication Summary Completed 04/19/2018 Patient Education: Skin Cancer Completed 04/19/2018 Patient Education: Obesity Completed 04/19/2018 Care Plan: BMI Above normal followup SELF-MGMT EDUC & TRAIN 1 PT Pending 2017 Appointment: Daly Stallings WPtel: [facility] [place] (30 min) Complex 04/13/2018 Referral: Benedicto Zamora Referral Initiated 06/30/2017 Care Plan: Referral Order SNOMED-CT : [id number] Pending 06/27/2017 Visit Plan: Well Adult - pt was counseled about diet, exercise, and encouraged to follow a heart healthy diet and increase activity level. The patient was instructed to RTC yearly for well adult exams and PRN for acute illnesses. The pt was also instructed to have yearly labs for check of cholesterol, thyroid, chem panel, CBC, and renal functioning. Obesity - chronic issue with this patient. The pt has been counseled about diet changes, calorie restriction, and need to exercise. Pt will RTC in one month for weight check. 06/07/2017 Appointment: Daly Stallings WPtel: [facility] (30 min) Complex 06/07/2017 Patient Education: Patient Medication Summary Completed 06/07/2017 Patient Education: Smoking and Tobacco Addiction Completed 06/07/2017 Patient Education: Obesity Completed 06/07/2017 Visit Plan: Ganglion Cyst - Benign - pt is to notify clinic if symptoms do not improve, if they worsen, or with any questions or concerns - will refer if pt decides that he would like it removed. 11/25/2016 Appointment: Daly Stallings WPtel: [facility] (30 min) Complex 11/25/2016 Patient Education: Patient Medication Summary Completed 11/25/2016 Patient Education: Smoking and Tobacco Addiction Completed 11/25/2016 Patient Education: Obesity Completed 11/25/2016 Referral: Richa Rosales WPtel: Referral Initiated 11/13/2015 Visit Plan: Skin changes - 3 lesions on the back - advised pt to use antibiotic ointment, will refer to dermatology for skin lesion removal. 10/28/2015 Appointment: Kitty Valadez WPtel: [phone] [place] (15 min) Moderate 10/28/2015 Patient Education: Patient Medication Summary Completed 10/28/2015 Patient Education: Smoking and Tobacco Addiction Completed 10/28/2015 Care Plan: Referral Order SNOMED-CT : [id number] Pending 10/28/2015 Visit Plan: Well Adult - pt was counseled about diet, exercise, and encouraged to follow a heart healthy diet and increase activity level. The patient was instructed to RTC yearly for well adult exams and PRN for acute illnesses. The pt was also instructed to have yearly labs for check of cholesterol, thyroid, chem panel, CBC, and renal functioning. Biceps tendinitis - pt to do exercises as directed, ant-inflammatories directed to be taken per RX instructions and pt to call if symptoms are not improved 12/25/2014 Appointment: Luisana Herrera WPtel: [facility] [place] [facility] New Patient 12/25/2014 Patient Education: Patient Medication Summary Completed 12/25/2014 Referral: Benedicto Zamora Referral Initiated Referral: Richa Rosales WPtel: Referral Initiated Instructions Comment . AK - left nose - Cryotherapy of skin lesions - three cryotherapy on each lesion, dressed with neosporin and monitor lesions. Obesity - chronic issue with this patient. The pt has been counseled about diet changes, calorie restriction, and need to exercise. Pt will RTC in one month for weight check. . Skin changes - 3 lesions on the back - advised pt to use antibiotic ointment, will refer to dermatology for skin lesion removal. . Well Adult - pt was counseled about diet, exercise, and encouraged to follow a heart healthy diet and increase activity level. The patient was instructed to RTC yearly for well adult exams and PRN for acute illnesses. The pt was also instructed to have yearly labs for check of cholesterol, thyroid, chem panel, CBC, and renal functioning. Obesity - chronic issue with this patient. The pt has been counseled about diet changes, calorie restriction, and need to exercise. Pt will RTC in one month for weight check. start allergy medicine once Prednisone taper down and Z-pack if you need it Sent to [facility]. Allergies - chronic - recommended pt to use allergy medication as prescribed. Pt has been counseled as to the appropriate use of the medication. Pt to call if allergy symptoms are not controlled with the medication. If using nasal spray, instructions as follows: Nasal spray- use twice daily, one spray per nostril twice daily, after 30 minutes, rinse out nose with saline spray.. Use opposite hand per nostril to spray in the nasal steroid allergy spray. URI - Pt advised to increase fluids, vitamin C. Discussed natural and expected course of this diagnosis and need to alert me if symptoms do not follow expected course, or if any worse. RX sent to patient's pharmacy. . Bronchitis - acute case of bronchitis identified. Pt has been given antibiotics, breathing treatments as appropriate, and pt has been instructed to call if symptoms are not improved, or if symptoms acutely worsen. . Ganglion Cyst - Benign - pt is to notify clinic if symptoms do not improve, if they worsen, or with any questions or concerns - will refer if pt decides that he would like it removed. . Well Adult - pt was counseled about diet, exercise, and encouraged to follow a heart healthy diet and increase activity level. The patient was instructed to RTC yearly for well adult exams and PRN for acute illnesses. The pt was also instructed to have yearly labs for check of cholesterol, thyroid, chem panel, CBC, and renal functioning. Biceps tendinitis - pt to do exercises as directed, ant-inflammatories directed to be taken per RX instructions and pt to call if symptoms are not improved 09/02/18 - Tuesday - 1015AM - be there at 10am to fill out paperwork . Skin lesion left nare - - referral to Dr. Butt for excision of the lesion on the nose. appt will be 09/02/18 @ 1015AM. Obesity - chronic issue with this patient. The pt has been counseled about diet changes, calorie restriction, and need to exercise. RTC for weight check
--- OUTSIDE RECORDS SUMMARY | 2018-10-26 06:41 | XMS REPORT | CCD ---
Author Author Luisana Herrera Organization Luisana Herrera MD, [facility] Address [address] [place] [address] Phone Care Team Providers Care Web Content Producer Name Role Phone PP Unavailable CCM Unavailable Summary Purpose Interface Exchange Insurance Providers Payer name Policy type / Coverage type Covered constitution party ID Effective Begin Date Effective End Date [facility] [id number] Unknown Family history Sister Diagnosis Age At Onset Depression Unknown Father Diagnosis Age At Onset Skin cancer Unknown Alcoholism Unknown Mother Diagnosis Age At Onset Breast cancer Unknown Social History Social History Element Codes Description Effective Dates Marital status Unknown Sharon 12/25/2014 Number of children Unknown 1 12/25/2014 Employment Unknown Currently employed [employer] 12/25/[address]: 94340181 Currently smokes tobacco quit 200912/25/[address]: 684383 Currently drinks alcohol 12/25/2014 Allergies, Adverse Reactions, [...] Instructions Zithromax Z-Da 250 mg tablet RxNorm: 470557 Tablet(s) PO 2 pills day one and 1 pill day 2-5 10/09/2018 No Stop Date Active prednisone 20 mg tablet RxNorm: 729745 Tablet(s) PO UD 201810/13/2018 Active 60,60,40,40,20,20,10,10 doxycycline hyclate 100 mg capsule RxNorm: 4689288 1 Capsule(s) PO BID 09/27/2018 10/03/2018 Inactive Kenalog 40 mg/mL suspension for injection RxNorm: 7575438 Milliliter(s) Inj 09/27/2018 09/27/2018 Inactive prednisone 20 mg tablet RxNorm: 243799 2 Tablet(s) PO daily 10/01/2018 Inactive atorvastatin 10 mg tablet RxNorm: 180247 1 Tablet(s) PO QPM 04/18/2018 Inactive Lipitor 10 mg tablet RxNorm: 826117 1 Tablet(s) PO QPM 201606/07/2017 Inactive Tamiflu 75 mg capsule RxNorm: 761811 1 Capsule(s) PO daily 09/2210/01/2016 Inactive Tamiflu 75 mg capsule RxNorm: 359883 1 Capsule(s) PO daily 09/2209/21/2016 Inactive Zithromax Z-Da 250 mg tablet RxNorm: 866351 Tablet(s) PO 2 pills day one and 1 pill day 2-5 07/25/2015 05/31/2017 Inactive Voltaren 1 % topical gel RxNorm: 004663 2 TOP TID 12/25/2014 08/20/2018 Inactive Bones & Joints oral RxNorm: oral No Start Date 08/20/2018 Inactive Zithromax Z-Da 250 mg tablet RxNorm: 362359 Tablet(s) PO 2 pills day one and 1 pill day 2-5 No Start Date 07/24/2015 Inactive Medication Administered Medication Codes Instructions Start Date Status Kenalog 40 mg/mL suspension for injection RxNorm: 4641325 Milliliter 09/27/2018 No longer Active Immunizations Vaccine [...] Code : 8480-6 BMI: 39.7 Code : 23874-6 Heart Rate 1 : 78 bpm Height: 6'2" SpO2: 98% Weight: 309 lbs 08/21/2018 Blood Pressure 1: 112/76 Code : 8480-6 BMI: 39.7 Code : 72245-9 Heart Rate 1 : 71 bpm Height: 6'2" SpO2: 92% Weight: 309 lbs 04/19/2018 Blood Pressure 1: 134/68 Code : 8480-6 BMI: 37.0 Code : 81496-8 Heart Rate 1 : 80 bpm Height: 6'2" SpO2: 96% Weight: 288 lbs 06/07/2017 Blood Pressure 1: 130/76 Code : 8480-6 BMI: 38.5 Code : 92511-6 Heart Rate 1 : 74 bpm Height: 6'2" SpO2: 98% Weight: 300 lbs 11/25/2016 Blood Pressure 1: 122/64 Code : 8480-6 BMI: 37.7 Code : 59866-4 Heart Rate 1 : 63 bpm Height: 6'2" SpO2: 97% Weight: 294 lbs 10/28/2015 Blood Pressure 1: 124/82 Code : 8480-6 BMI: 35.7 Code : 97610-9 Heart Rate 1 : 71 bpm Height: 6'2" SpO2: 97% Weight: 278 lbs 12/25/2014 Blood Pressure 1: 124/72 Code : 8480-6 BMI: 35.8 Code : 46815-1 Heart Rate 1 : 70 bpm Height: [...] Other allergic rhinitis[ICD10: J30.89] Daly Herrera MD, [facility] CPT-4: 25160 10/09/2018 [id number] EST. PATIENT, LEVEL IV Diagnosis: Acute bronchitis due to other specified organisms[ICD10: J20.8] [facility] CPT-4: 00937 09/27/2018 ([id number]) 92308 EST. PATIENT, LEVEL III Diagnosis: Basal cell carcinoma of skin of nose[ICD10: C44.311] Diagnosis: Other obesity due to excess calories[ICD10: E66.09] Luisana Herrera MD, [facility] CPT-4: 60407 08/21/2018 33190 EST. PATIENT, LEVEL III Diagnosis: Other obesity due to excess calories[ICD10: E66.09] Diagnosis: Actinic keratosis[ICD10: L57.0] Daly Herrera MD, [facility] CPT-4 : 45512 04/19/2018 ([id number]) PREV VISIT EST AGE 40-64 Diagnosis: Encounter for screening for cardiovascular disorders[ICD10: Z13.6] Diagnosis: Encounter for screening for malignant neoplasm of prostate[ICD10: Z12.5] Diagnosis: Other obesity due to excess calories[ICD10: E66.09] [facility] CPT-4: 54923 06/07/2017 62807 EST. PATIENT, LEVEL III Diagnosis: Ganglion, right hand[ICD10: M67.441] [facility] CPT-4: 09985 11/25/2016 [id number] EST. PATIENT, LEVEL IV Diagnosis: Other seborrheic keratosis[ICD10: L82.1] Diagnosis: Disorder of the skin and subcutaneous tissue, unspecified[ICD10: L98.9] [facility] CPT-4: 22141 2015 ([id number]) PREV VISIT NEW AGE 40-64 Diagnosis: Routine medical exam[ICD9: V70.0] Luisana Herrera MD, [facility] CPT-4: 21063 12/25/2014 Plan of Care Planned Activity Notes [...] worse. RX sent to patient's pharmacy. 10/09/2018 Patient Education: Patient Medication Summary Completed 10/09/2018 Visit Plan: Bronchitis - acute case of bronchitis identified. Pt has been given antibiotics, breathing treatments as appropriate, and pt has been instructed to call if symptoms are not improved, or if symptoms acutely worsen. 09/27/2018 Appointment: [facility] [facility] 09/27/2018 Patient Education: Patient Medication Summary Completed 09/27/2018 Visit Plan: Skin lesion left nare - - referral to Dr. Butt for excision of the lesion on the nose. appt will be 09/02/18 @ [facility]. Obesity - chronic issue with this patient. The pt has been counseled about diet changes, calorie restriction, and need to exercise. RTC for weight check 08/21/2018 Appointment: Luisana Herrera WPtel: [facility] (15 min) Moderate 08/21/2018 Patient [...] weight check. 04/19/2018 Appointment: D[facility] Stallings [facility]Ptel[facility] ([facility] Moderate 04/19/2018 Patient Education: Patient Medication Summary Completed 04/19/2018 Patient Education: Skin Cancer Completed 04/19/2018 Patient Education: Obesity Completed 04/19/2018 Care Plan: BMI Above normal followup SELF-MGMT EDUC & TRAIN 1 PT Pending 2017 Appointment: D[facility] Stall[facility]Ptel[facility] ([facility] Complex 04/13/2018 Referral: Benedicto Zamora Referral Initiated 06/30/2017 Care Plan: Referral Order SNOMED-CT : 895313708 Pending 06/27/2017 Visit Plan: Well Adult - [...] weight check. 06/07/2017 Appointment: Daly Stallings [facility]Ptel[facility] ([facility] 06/07/2017 Patient Education: Patient [...] it removed. 11/25/2016 Appointment: [facility] Stall[facility]Ptel[facility] ([facility] 11/25/2016 Patient Education: Patient Medication Summary Completed 11/25/2016 Patient Education: Smoking and Tobacco Addiction Completed 11/25/2016 Patient Education: Obesity Completed 11/25/2016 Referral: Richa Rosales WPtel: Referral Initiated 11/13/2015 Visit Plan: Skin changes - 3 lesions on the back - advised pt to use antibiotic ointment, will refer to dermatology for skin lesion removal. 10/28/2015 Appointment: Kitty Valadez [facility]Ptel[facility] (15 min) Moderate 10/28/2015 Patient Education: Patient Medication Summary Completed 10/28/2015 Patient Education: Smoking and Tobacco Addiction Completed 10/28/2015 Care Plan: Referral Order SNOMED-CT : [id number] Pending 10/28/2015 Visit Plan: Well Adult - [...] not improved 12/25/2014 Appointment: [facility] [phone] [facility] [place] [facility] New Patient 12/25/2014 Patient Education: [...]
--- OUTSIDE RECORDS SUMMARY | 2018-10-26 06:42 | XMS REPORT | CCD ---
Author Author Luisana Herrera Organization Luisana Herrera MD, [facility] Address [address] [place] [address] Phone Care Team Providers Care Land Leveler Name Role Phone PP Unavailable CCM Unavailable Summary Purpose Interface Exchange Insurance Providers Payer name Policy type / Coverage type Covered democrat ID Effective Begin Date Effective End Date [facility] [id number] Unknown Family history Sister Diagnosis Age At Onset Depression Unknown Father Diagnosis Age At Onset Skin cancer Unknown Alcoholism Unknown Mother Diagnosis Age At Onset Breast cancer Unknown Social History Social History Element Codes Description Effective Dates Marital status Unknown Sharon 12/25/2014 Number of children Unknown 1 12/25/2014 Employment Unknown Currently employed [id number] 12/25/[address]: 72380601 Currently smokes tobacco quit 200912/25/[address]: 880356 Currently drinks alcohol 12/25/2014 Allergies, Adverse Reactions, Alerts Substance Reaction Codes Entered Date Inactivated Date Status * NO KNOWN DRUG ALLERGIES Unknown 12/25/2014 No Inactive Date Active Past Medical History Illness Codes Condition Status Onset Date Resolved Date Acute bronchitis due to other specified organisms [...] Problems Condition Codes Effective Dates Condition Status Acute bronchitis due to other specified organisms [...] Start Date Stop Date Status Fill Instructions doxycycline hyclate 100 mg capsule RxNorm: 9177995 1 Capsule(s) PO BID 09/27/2018 10/03/2018 Inactive Kenalog 40 mg/mL suspension for injection RxNorm: 4946545 Milliliter(s) Inj 09/27/2018 09/27/2018 Inactive prednisone 20 mg tablet RxNorm: 883917 2 Tablet(s) PO daily 10/01/2018 Inactive atorvastatin 10 mg tablet RxNorm: 429695 1 Tablet(s) PO QPM 04/18/2018 Inactive Lipitor 10 mg tablet RxNorm: 766972 1 Tablet(s) PO QPM 201606/07/2017 Inactive Tamiflu 75 mg capsule RxNorm: 779171 1 Capsule(s) PO daily 09/2210/01/2016 Inactive Tamiflu 75 mg capsule RxNorm: 998766 1 Capsule(s) PO daily 09/2209/21/2016 Inactive Zithromax Z-Da 250 mg tablet RxNorm: 294549 Tablet(s) PO 2 pills day one and 1 pill day 2-5 07/25/2015 05/31/2017 Inactive Voltaren 1 % topical gel RxNorm: 620663 2 TOP TID 12/25/2014 08/20/2018 Inactive Bones & Joints oral RxNorm: oral No Start Date 08/20/2018 Inactive Zithromax Z-Da 250 mg tablet RxNorm: 770275 Tablet(s) PO 2 pills day one and 1 pill day 2-5 No Start Date 07/24/2015 Inactive Medication Administered Medication Codes Instructions Start Date Status Kenalog 40 mg/mL suspension for injection RxNorm: 4628933 Milliliter 09/27/2018 No longer Active Immunizations Vaccine Codes Date Status Tetanus, Diptheria, Pertussis CVX: 113 completed Tetanus/Diptheria CVX: 113 12/16/2013 completed Assessments Condition Codes Effective Dates Acute bronchitis due to other specified organisms [...] Reason For Visit Effective Dates Notes cough 09/27/2018 skin lesion 08/21/2018 well man exam (40-65 years) 04/19/2018 weight gain/obesity 06/07/2017 skin lesion 11/25/2016 mole check 10/28/2015 weight gain/obesity 12/25/2014 on back- dad has hx of skin cancer Results No Results data Review of Systems System Result Effective Dates Constitutional recent illness 09/27/2018 Constitutional No chills [...] None Full Exam - General 1995 Ears/Nose/Throat otoscopic exam Tympanic membrane: air- fluid [...] 1994 Eyes conjunctiva /eyelids Overall: cornea clear 08/21/2018 [...] CPT-4: J3301 09/27/2018 Vital Signs Date Vital 09/27/2018 Blood Pressure 1: 126/78 Code : 8480-6 BMI: 39.7 Code : 01860-3 Heart Rate 1 : 78 bpm Height: 6'2" SpO2: 98% Weight: 309 lbs 08/21/2018 Blood Pressure 1: 112/76 Code : 8480-6 BMI: 39.7 Code : 70579-5 Heart Rate 1 : 71 bpm Height: 6'2" SpO2: 92% Weight: 309 lbs 04/19/2018 Blood Pressure 1: 134/68 Code : 8480-6 BMI: 37.0 Code : 68081-6 Heart Rate 1 : 80 bpm Height: 6'2" SpO2: 96% Weight: 288 lbs 06/07/2017 Blood Pressure 1: 130/76 Code : 8480-6 BMI: 38.5 Code : 31639-8 Heart Rate 1 : 74 bpm Height: 6'2" SpO2: 98% Weight: 300 lbs 11/25/2016 Blood Pressure 1: 122/64 Code : 8480-6 BMI: 37.7 Code : 67769-7 Heart Rate 1 : 63 bpm Height: 6'2" SpO2: 97% Weight: 294 lbs 10/28/2015 Blood Pressure 1: 124/82 Code : 8480-6 BMI: 35.7 Code : 28408-1 Heart Rate 1 : 71 bpm Height: 6'2" SpO2: 97% Weight: 278 lbs 12/25/2014 Blood Pressure 1: 124/72 Code : 8480-6 BMI: 35.8 Code : 63867-8 Heart Rate 1 : 70 bpm Height: 6'2" Weight: 279 lbs Functional Status No Functional Status data History of Present Illness Symptom Name Status Result Effective Date Notes Location in the lung 09/27/2018 None Quality [...] Performer Location Codes Date EST. PATIENT, LEVEL IV Diagnosis: Acute bronchitis due to other specified organisms[ICD10: J20.8] [facility] CPT-4: 59853 09/27/2018 ([id number]) 68692 EST. PATIENT, LEVEL III Diagnosis: Basal cell carcinoma of skin of nose[ICD10: C44.311] Diagnosis: Other obesity due to excess calories[ICD10: E66.09] [facility] CPT-4: 10894 08/21/2018 59675 EST. PATIENT, LEVEL III Diagnosis: Other obesity due to excess calories[ICD10: E66.09] Diagnosis: Actinic keratosis[ICD10: L57.0] [facility] CPT-4 : 10838 04/19/2018 ([id number]) PREV VISIT EST AGE 40-64 Diagnosis: Encounter for screening for cardiovascular disorders[ICD10: Z13.6] Diagnosis: Encounter for screening for malignant neoplasm of prostate[ICD10: Z12.5] Diagnosis: Other obesity due to excess calories[ICD10: E66.09] Daly Herrera MD, [facility] CPT-4: 06740 06/07/2017 85324 EST. PATIENT, LEVEL III Diagnosis: Ganglion, right hand[ICD10: M67.441] [facility] CPT-4: 24170 11/25/2016 37820 EST. PATIENT, LEVEL IV Diagnosis: Other seborrheic keratosis[ICD10: L82.1] Diagnosis: Disorder of the skin and subcutaneous tissue, unspecified[ICD10: L98.9] [facility] CPT-4: 99922 2015 ([id number]) PREV VISIT NEW AGE 40-64 Diagnosis: Routine medical exam[ICD9: V70.0] Luisana Herrera MD, [facility] CPT-4: 88140 12/25/2014 Plan of Care Planned Activity Notes Codes Status Date Visit Plan: Bronchitis - acute case of bronchitis identified. Pt has been given antibiotics, breathing treatments as appropriate, and pt has been instructed to call if symptoms are not improved, or if symptoms acutely worsen. 09/27/2018 Appointment: Daly Stallings WPtel: [address] [place], [place] [address] (30 min) Complex 09/27/2018 Patient Education: Patient Medication Summary Completed 09/27/2018 Visit Plan: Skin lesion left nare - - referral to Dr. Butt for excision of the lesion on the nose. appt will be 09/02/18 @ [facility]. Obesity - chronic issue with this patient. The pt has been counseled about diet changes, calorie restriction, and need to exercise. RTC for weight check 08/21/2018 Appointment: Luisana Herrera WPtel: [address] [place], [place] [address] (15 min) Moderate 08/21/2018 Patient Education: Patient [...] weight check. 04/19/2018 [facility]ment[phone] [facility] (15 min) Moderate 04/19/2018 Patient Education: Patient Medication Summary Completed 04/19/2018 Patient Education: Skin Cancer Completed 04/19/2018 Patient Education: Obesity Completed 04/19/2018 Care Plan: BMI Above normal followup SELF-MGMT EDUC & TRAIN 1 PT Pending 2017 Appointment: Daly Stallings WPtel: [phone] [facility] (30 min) Complex 04/13/2018 Referral: Benedicto Zamora Referral Initiated 06/30/2017 Care Plan: Referral Order SNOMED-CT : 551553611 Pending 06/27/2017 Visit Plan: Well Adult - [...] weight check. 06/07/2017 Appointment: [facility] Stall[phone] [facility] (30 min) Complex 06/07/2017 Patient Education: Patient [...] it removed. 11/25/2016 Appointment: [facility] Stallings [facility] [phone] [facility] (30 min) Complex 11/25/2016 Patient Education: Patient Medication Summary Completed 11/25/2016 Patient Education: Smoking and Tobacco Addiction Completed 11/25/2016 Patient Education: Obesity Completed 11/25/2016 Referral: Richa Rosales WPtel: Referral Initiated 11/13/2015 Visit Plan: Skin changes - 3 lesions on the back - advised pt to use antibiotic ointment, will refer to dermatology for skin lesion removal. 10/28/2015 Appointment: Kitty Valadez WPtel: [address] [place], [place] [id number] [place] [address] (15 min) Moderate 10/28/2015 Patient Education: Patient Medication Summary Completed 10/28/2015 Patient Education: Smoking and Tobacco Addiction Completed 10/28/2015 Care Plan: Referral Order SNOMED-CT : [id number] Pending 10/28/2015 Visit Plan: Well Adult - [...] not improved 12/25/2014 Appointment: Luisana Herrera WPtel: [address] [place], [place] [id number] [place] ([place]) New Patient 12/25/2014 Patient Education: [...] in one month for weight check. . Bronchitis - acute case of bronchitis [...]
--- OUTSIDE RECORDS SUMMARY | 2018-10-26 06:43 | XMS REPORT | CCD ---
Author Author Luisana Herrera Organization Luisana Herrera MD, [facility] Address [address] [place] [address] Phone Care Team Providers Care Rib Puller Name Role Phone PP Unavailable CCM Unavailable Summary Purpose Interface Exchange Insurance Providers Payer name Policy type / Coverage type Covered libertarian ID Effective Begin Date Effective End Date [facility] [id number] Unknown Family history Sister Diagnosis Age At Onset Depression Unknown Father Diagnosis Age At Onset Skin cancer Unknown Alcoholism Unknown Mother Diagnosis Age At Onset Breast cancer Unknown Social History Social History Element Codes Description Effective Dates Marital status Unknown Sharon 12/25/2014 Number of children Unknown 1 12/25/2014 Employment Unknown Currently employed [employer] 12/25/[address]: 59117729 Currently smokes tobacco quit 200912/25/[address]: 016118 Currently drinks alcohol 12/25/2014 Allergies, Adverse Reactions, [...] Instructions doxycycline hyclate 100 mg capsule RxNorm: 7953897 1 Capsule(s) PO BID 09/27/2018 10/03/2018 Active prednisone 20 mg tablet RxNorm: 509528 2 Tablet(s) PO daily 10/01/2018 Active Kenalog 40 mg/mL suspension for injection RxNorm: 0002687 Milliliter(s) Inj 09/27/2018 09/27/2018 Inactive atorvastatin 10 mg tablet RxNorm: 993741 1 Tablet(s) PO QPM 04/18/2018 Inactive Lipitor 10 mg tablet RxNorm: 373112 1 Tablet(s) PO QPM 201606/07/2017 Inactive Tamiflu 75 mg capsule RxNorm: 092307 1 Capsule(s) PO daily 09/2210/01/2016 Inactive Tamiflu 75 mg capsule RxNorm: 722880 1 Capsule(s) PO daily 09/2209/21/2016 Inactive Zithromax Z-Da 250 mg tablet RxNorm: 097156 Tablet(s) PO 2 pills day one and 1 pill day 2-5 07/25/2015 05/31/2017 Inactive Voltaren 1 % topical gel RxNorm: 144057 2 TOP TID 12/25/2014 08/20/2018 Inactive Bones & Joints oral RxNorm: oral No Start Date 08/20/2018 Inactive Zithromax Z-Da 250 mg tablet RxNorm: 580317 Tablet(s) PO 2 pills day one and 1 pill day 2-5 No Start Date 07/24/2015 Inactive Medication Administered Medication Codes Instructions Start Date Status Kenalog 40 mg/mL suspension for injection RxNorm: 4490084 Milliliter 09/27/2018 No longer Active Immunizations Vaccine [...] Code : 8480-6 BMI: 39.7 Code : 92076-6 Heart Rate 1 : 78 bpm Height: 6'2" SpO2: 98% Weight: 309 lbs 08/21/2018 Blood Pressure 1: 112/76 Code : 8480-6 BMI: 39.7 Code : 06251-7 Heart Rate 1 : 71 bpm Height: 6'2" SpO2: 92% Weight: 309 lbs 04/19/2018 Blood Pressure 1: 134/68 Code : 8480-6 BMI: 37.0 Code : 75201-1 Heart Rate 1 : 80 bpm Height: 6'2" SpO2: 96% Weight: 288 lbs 06/07/2017 Blood Pressure 1: 130/76 Code : 8480-6 BMI: 38.5 Code : 02192-2 Heart Rate 1 : 74 bpm Height: 6'2" SpO2: 98% Weight: 300 lbs 11/25/2016 Blood Pressure 1: 122/64 Code : 8480-6 BMI: 37.7 Code : 72475-7 Heart Rate 1 : 63 bpm Height: 6'2" SpO2: 97% Weight: 294 lbs 10/28/2015 Blood Pressure 1: 124/82 Code : 8480-6 BMI: 35.7 Code : 42089-0 Heart Rate 1 : 71 bpm Height: 6'2" SpO2: 97% Weight: 278 lbs 12/25/2014 Blood Pressure 1: 124/72 Code : 8480-6 BMI: 35.8 Code : 52135-1 Heart Rate 1 : 70 bpm Height: [...] organisms[ICD10: J20.8] [facility] CPT-4: 69626 09/27/2018 ([id number]) 18240 EST. PATIENT, LEVEL III Diagnosis: Basal cell carcinoma of skin of nose[ICD10: C44.311] Diagnosis: Other obesity due to excess calories[ICD10: E66.09] [facility] CPT-4: 96530 08/21/2018 67082 EST. PATIENT, LEVEL III Diagnosis: Other obesity due to excess calories[ICD10: E66.09] Diagnosis: Actinic keratosis[ICD10: L57.0] [facility] CPT-4 : 63462 04/19/2018 (22781) PREV VISIT EST AGE 40-64 Diagnosis: Encounter for screening for cardiovascular disorders[ICD10: Z13.6] Diagnosis: Encounter for screening for malignant neoplasm of prostate[ICD10: Z12.5] Diagnosis: Other obesity due to excess calories[ICD10: E66.09] Daly Herrera MD, [facility] CPT-4: 08639 06/07/2017 25325 EST. PATIENT, LEVEL III Diagnosis: Ganglion, right hand[ICD10: M67.441] [facility] CPT-4: 84598 11/25/2016 20906 EST. PATIENT, LEVEL IV Diagnosis: Other seborrheic keratosis[ICD10: L82.1] Diagnosis: Disorder of the skin and subcutaneous tissue, unspecified[ICD10: L98.9] [facility] CPT-4: 48601 2015 ([id number]) PREV VISIT NEW AGE 40-64 Diagnosis: Routine medical exam[ICD9: V70.0] Luisana Herrera MD, [facility] CPT-4: 46097 12/25/2014 Plan of Care Planned Activity Notes Codes Status Date Visit Plan: Bronchitis - acute case of bronchitis identified. Pt has been given antibiotics, breathing treatments as appropriate, and pt has been instructed to call if symptoms are not improved, or if symptoms acutely worsen. 09/27/2018 Appointment: Daly Stallings WPtel: [address] [place], [place] [address] (30 min) Complex 09/27/2018 Patient Education: Patient Medication Summary Completed 09/27/2018 Visit Plan: Skin lesion left nare - - referral to Dr. Butt for excision of the lesion on the nose. appt will be 09/02/18 @ [facility]. Obesity - chronic issue with this patient. The pt has been counseled about diet changes, calorie restriction, and need to exercise. RTC for weight check 08/21/2018 Appointment: Luisana Herrera WPtel: [address] [place], [place] [address] (15 min) Moderate 08/21/2018 Patient Education: Patient [...] check. 04/19/2018 [facility] [phone] [facility] ([facility] Moderate 04/19/2018 Patient Education: Patient Medication Summary Completed 04/19/2018 Patient Education: Skin Cancer Completed 04/19/2018 Patient Education: Obesity Completed 04/19/2018 Care Plan: BMI Above normal followup SELF-MGMT EDUC & TRAIN 1 PT Pending 2017 Appointment: Daly Stallings WPtel: [phone] [facility] (30 min) Complex 04/13/2018 Referral: Benedicto Zamora Referral Initiated 06/30/2017 Care Plan: Referral Order SNOMED-CT : 632923748 Pending 06/27/2017 Visit Plan: Well Adult - [...] check. 06/07/2017 Appointment: [facility] [phone] [facility] ([facility] min) Complex 06/07/2017 Patient Education: [...] it removed. 11/25/2016 Appointment: [facility] [phone] [facility] ([facility] min) Complex 11/25/2016 Patient Education: Patient Medication Summary Completed 11/25/2016 Patient Education: Smoking and Tobacco Addiction Completed 11/25/2016 Patient Education: Obesity Completed 11/25/2016 Referral: Richa Rosales WPtel: Referral Initiated 11/13/2015 Visit Plan: Skin changes - 3 lesions on the back - advised pt to use antibiotic ointment, will refer to dermatology for skin lesion removal. 10/28/2015 Appointment: Kitty Valadez WPtel: [address] [place], [place] [phone] [place] [address] (15 min) Moderate 10/28/2015 Patient Education: Patient Medication Summary Completed 10/28/2015 Patient Education: Smoking and Tobacco Addiction Completed 10/28/2015 Care Plan: Referral Order SNOMED-CT : 222021547 Pending 10/28/2015 Visit Plan: Well Adult - [...] not improved 12/25/2014 Appointment: Luisana Herrera WPtel: [address] [place], [place] [phone] [place] (S) New Patient 12/25/2014 Patient Education: [...]
--- OUTSIDE RECORDS SUMMARY | 2018-10-26 06:44 | XMS REPORT | CCD ---
Author Author Luisana Herrera Organization Luisana Herrera MD, [facility] Address [address] [place] [address] Phone Care Team Providers Care Buckler And Lacer Name Role Phone PP Unavailable CCM Unavailable Summary Purpose Interface Exchange Insurance Providers Payer name Policy type / Coverage type Covered libertarian ID Effective Begin Date Effective End Date [facility] [id number] Unknown Family history Sister Diagnosis Age At Onset Depression Unknown Father Diagnosis Age At Onset Skin cancer Unknown Alcoholism Unknown Mother Diagnosis Age At Onset Breast cancer Unknown Social History Social History Element Codes Description Effective Dates Marital status Unknown Sharon 12/25/2014 Number of children Unknown 1 12/25/2014 Employment Unknown Currently employed [employer] 12/25/[address]: 16677183 Currently smokes tobacco quit 200912/25/[address]: 463117 Currently drinks alcohol 12/25/2014 Allergies, Adverse Reactions, Alerts Substance Reaction Codes Entered Date Inactivated Date Status * NO KNOWN DRUG ALLERGIES Unknown 12/25/2014 No Inactive Date Active Past Medical History Illness Codes Condition Status Onset Date Resolved Date Basal cell carcinoma of skin of nose [...] Problems Condition Codes Effective Dates Condition Status Basal cell carcinoma of skin of nose [...] Start Date Stop Date Status Fill Instructions atorvastatin 10 mg tablet RxNorm: 309599 1 Tablet(s) PO QPM 04/18/2018 Inactive Lipitor 10 mg tablet RxNorm: 432813 1 Tablet(s) PO QPM 201606/07/2017 Inactive Tamiflu 75 mg capsule RxNorm: 390441 1 Capsule(s) PO daily 09/2210/01/2016 Inactive Tamiflu 75 mg capsule RxNorm: 689147 1 Capsule(s) PO daily 09/2209/21/2016 Inactive Zithromax Z-Da 250 mg tablet RxNorm: 086003 Tablet(s) PO 2 pills day one and 1 pill day 2-5 07/25/2015 05/31/2017 Inactive Voltaren 1 % topical gel RxNorm: 839577 2 TOP TID 12/25/2014 08/20/2018 Inactive Bones & Joints oral RxNorm: oral No Start Date 08/20/2018 Inactive Zithromax Z-Da 250 mg tablet RxNorm: 407931 Tablet(s) PO 2 pills day one and 1 pill day 2-5 No Start Date 07/24/2015 Inactive Medication Administered No Medication Administered data Immunizations Vaccine Codes Date Status Tetanus, Diptheria, Pertussis CVX: 113 completed Tetanus/Diptheria CVX: 113 12/16/2013 completed Assessments Condition Codes Effective Dates Basal cell carcinoma of skin of nose [...] Visit Reason For Visit Effective Dates Notes skin lesion 08/21/2018 well man exam (40-65 years) 04/19/2018 weight gain/obesity 06/07/2017 skin lesion 11/25/2016 mole check 10/28/2015 weight gain/obesity 12/25/2014 on back- dad has hx of skin cancer Results No Results data Review of Systems System Result Effective Dates Constitutional No recent illness 2018 Constitutional obesity [...] station 08/21/2018 None Full Exam - General 1995 Musculoskeletal head and neck Overall: head atraumatic [...] tenderness @ bicipital groove 12/25/2014 None Procedures No Procedures data Vital Signs Date Vital 08/21/2018 Blood Pressure 1: 112/76 Code : 8480-6 BMI: 39.7 Code : 71821-8 Heart Rate 1 : 71 bpm Height: 6'2" SpO2: 92% Weight: 309 lbs 04/19/2018 Blood Pressure 1: 134/68 Code : 8480-6 BMI: 37.0 Code : 78277-6 Heart Rate 1 : 80 bpm Height: 6'2" SpO2: 96% Weight: 288 lbs 06/07/2017 Blood Pressure 1: 130/76 Code : 8480-6 BMI: 38.5 Code : 66705-1 Heart Rate 1 : 74 bpm Height: 6'2" SpO2: 98% Weight: 300 lbs 11/25/2016 Blood Pressure 1: 122/64 Code : 8480-6 BMI: 37.7 Code : 24221-4 Heart Rate 1 : 63 bpm Height: 6'2" SpO2: 97% Weight: 294 lbs 10/28/2015 Blood Pressure 1: 124/82 Code : 8480-6 BMI: 35.7 Code : 00906-3 Heart Rate 1 : 71 bpm Height: 6'2" SpO2: 97% Weight: 278 lbs 12/25/2014 Blood Pressure 1: 124/72 Code : 8480-6 BMI: 35.8 Code : 41778-3 Heart Rate 1 : 70 bpm Height: 6'2" Weight: 279 lbs Functional Status No Functional Status data History of Present Illness Symptom Name Status Result Effective Date Notes Location Nose 2018 None Onset and Resolution [...] data Encounters Encounter Performer Location Codes Date () 56474 EST. PATIENT, LEVEL III Diagnosis: Basal cell carcinoma of skin of nose[ICD10: C44.311] Diagnosis: Other obesity due to excess calories[ICD10: E66.09] [facility] CPT-4: 46356 08/21/2018 87324 EST. PATIENT, LEVEL III Diagnosis: Other obesity due to excess calories[ICD10: E66.09] Diagnosis: Actinic keratosis[ICD10: L57.0] [facility] CPT-4 : 60548 04/19/2018 (00455) PREV VISIT EST AGE 40-64 Diagnosis: Encounter for screening for cardiovascular disorders[ICD10: Z13.6] Diagnosis: Encounter for screening for malignant neoplasm of prostate[ICD10: Z12.5] Diagnosis: Other obesity due to excess calories[ICD10: E66.09] [facility] CPT-4: 69348 06/07/2017 18095 EST. PATIENT, LEVEL III Diagnosis: Ganglion, right hand[ICD10: M67.441] [facility] CPT-4: 29227 11/25/2016 22368 EST. PATIENT, LEVEL IV Diagnosis: Other seborrheic keratosis[ICD10: L82.1] Diagnosis: Disorder of the skin and subcutaneous tissue, unspecified[ICD10: L98.9] [facility] CPT-4: 32208 2015 (90780) PREV VISIT NEW AGE 40-64 Diagnosis: Routine medical exam[ICD9: V70.0] [facility] CPT-4: 57419 12/25/2014 Plan of Care Planned Activity Notes Codes Status Date Visit Plan: Skin lesion left nare - - referral to Dr. Butt for excision of the lesion on the nose. appt will be 09/02/18 @ [facility]. Obesity - chronic issue with this patient. The pt has been counseled about diet changes, calorie restriction, and need to exercise. RTC for weight check 08/21/2018 Patient Education: Patient Medication Summary Completed [...] check. 04/19/2018 [facility]ment: [facility] [phone] [facility] (15 min) Moderate 04/19/2018 Patient Education: Patient Medication Summary Completed 04/19/2018 Patient Education: Skin Cancer Completed 04/19/2018 Patient Education: Obesity Completed 04/19/2018 Care Plan: BMI Above normal followup SELF-MGMT EDUC & TRAIN 1 PT Pending 2017 App[facility]ment: [facility] St[facility] [phone] [facility] (30 min) Complex 04/13/2018 Referral: Benedicto Zamora Referral Initiated 06/30/2017 Care Plan: Referral Order SNOMED-CT : 756716276 Pending 06/27/2017 Visit Plan: Well Adult - [...] weight check. 06/07/2017 Appointment: Daly Stallings WPtel: [facility] (30 min) Complex 06/07/2017 Patient Education: [...] it removed. 11/25/2016 Appointment: Daly Stallings WPtel[facility] ([facility] min) Complex 11/25/2016 Patient Education: Patient Medication Summary Completed 11/25/2016 Patient Education: Smoking and Tobacco Addiction Completed 11/25/2016 Patient Education: Obesity Completed 11/25/2016 Referral: Richa Rosales WPtel: Referral Initiated 11/13/2015 Visit Plan: Skin changes - 3 lesions on the back - advised pt to use antibiotic ointment, will refer to dermatology for skin lesion removal. 10/28/2015 Appointment: Kitty Valadez WPtel: [phone] [phone] [place] (15 min) Moderate 10/28/2015 Patient Education: Patient Medication Summary Completed 10/28/2015 Patient Education: Smoking and Tobacco Addiction Completed 10/28/2015 Care Plan: Referral Order SNOMED-CT : 570857318 Pending 10/28/2015 Visit Plan: Well Adult - [...] if symptoms are not improved 12/25/2014 Appointment: Sharon [facility] [phone] [facility] [place] ([place] New Patient 12/25/2014 Patient Education: [...] in one month for weight check. . Ganglion Cyst - Benign - pt [...]
--- OUTSIDE RECORDS SUMMARY | 2018-10-26 06:44 | XMS REPORT | Continuity of Care Document ---
Author Organization Unknown Address Unknown Allergies Active Description Code Type Severity Reaction Onset Reported/Identified Relationship to Patient Clinical Status Yes No Known Drug Allergies [id number] Drug Allergy Unknown N/A 01/05/2013 Medications There is no data. 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 07/01/2017 Ot 608.9 MALE GENITAL DIS NOS 07/14/2017 MARYBETH SAN Ot E66.9 OBESITY, UNSPECIFIED 07/14/2017 MARYBETH SAN Ot E78.5 HYPERLIPIDEMIA, UNSPECIFIED 07/14/2017 MARYBETH SAN Ot R06.09 OTHER FORMS OF DYSPNEA 10/20/2018 JUAN PABLO NAVA MD, Ot J34.9 UNSPECIFIED DISORDER OF NOSE AND NASAL S 10/20/2018 JUAN PABLO NAVA MD Ot Z01.812 ENCOUNTER FOR PREPROCEDURAL LABORATORY E 10/20/2018 JUAN PABLO NAVA MD Ot Z11.2 ENCOUNTER FOR SCREENING FOR OTHER BACTER 10/20/2018 JUAN PABLO NAVA MD, Ot J34.9 UNSPECIFIED DISORDER OF NOSE AND NASAL S 10/20/2018 JUAN PABLO NAVA MD, Ot Z01.812 ENCOUNTER FOR PREPROCEDURAL LABORATORY E 10/20/2018 JUAN PABLO NAVA MD Ot Z11.2 ENCOUNTER FOR SCREENING FOR OTHER BACTER Procedures There is no data. Results Test Result Range Methicillin resistant Staphylococcus aureus (MRSA) screening culture - 15:12 Methicillin resistant Staphylococcus aureus (MRSA) screening culture NEG NRG Complete blood count (CBC) with automated white blood cell (WBC) differential - 10/19/18 15:20 Blood leukocytes automated count (number/volume) 6.2 10*3/uL 4.3-11.0 Blood erythrocytes automated count (number/volume) 4.62 10*6/uL 4.35-5.85 Venous blood hemoglobin measurement (mass/volume) 14.7 g/dL 13.3-17.7 Blood hematocrit (volume fraction) 43 % 40-54 Automated erythrocyte mean corpuscular volume 94 [foz_us] 80-99 Automated erythrocyte mean corpuscular hemoglobin (mass per erythrocyte) 32 pg 25-34 Automated erythrocyte mean corpuscular hemoglobin concentration measurement ( mass/volume) 34 g/dL 32-36 Automated erythrocyte distribution width ratio 13.1 % 10.0-14.5 Automated blood platelet count (count/volume) 240 10*3/uL 130-400 Automated blood platelet mean volume measurement 10.4 [foz_us] 7.4-10.4 Automated blood neutrophils/100 leukocytes 58 % 42-75 Automated blood lymphocytes/100 leukocytes 26 % 12-44 Blood monocytes/100 leukocytes 11 % 0-12 Automated blood eosinophils/100 leukocytes 4 % 0-10 Automated blood basophils/100 leukocytes 1 % 0-10 Blood neutrophils automated count (number/volume) 3.6 10*3 1.8-7.8 Blood lymphocytes automated count (number/volume) 1.6 10*3 1.0-4.0 Blood monocytes automated count (number/volume) 0.7 10*3 0.0-1.0 Automated eosinophil count 0.2 10*3/uL 0.0-0.3 Automated blood basophil count (count/volume) 0.1 10*3/uL 0.0-0.1 Whole blood basic metabolic panel - 10/19/18 15:20 Serum or plasma sodium measurement (moles/volume) 140 mmol/L 135-145 Serum or plasma potassium measurement (moles/volume) 4.1 mmol/L 3.6-5.0 Serum or plasma chloride measurement (moles/volume) 104 mmol/L 98-107 Carbon dioxide 25 mmol/L 21-32 Serum or plasma anion gap determination (moles/volume) 11 mmol/L 5-14 Serum or plasma urea nitrogen measurement (mass/volume) 17 mg/dL 7-18 Serum or plasma creatinine measurement (mass/volume) 0.92 mg/dL 0.60-1.30 Serum or plasma urea nitrogen/creatinine mass ratio 18 NRG Serum or plasma creatinine measurement with calculation of estimated glomerular filtration rate > NRG Serum or plasma glucose measurement (mass/volume) 118 mg/dL 70-105 Serum or plasma calcium measurement (mass/volume) 9.6 mg/dL 8.5-10.1 Encounters ACCT No. Visit Date/Time Discharge Status Pt. Type Provider Facility Loc./Unit Complaint [id number] 10/19/2018 14:58:00 10/19/2018 15:30:00 DIS Outpatient JUAN PABLO NAVA MD [facility] PREOP LEFT NASAL ALAR LESION [id number] 07/01/2017 08:34:00 07/01/2017 23:59:59 CLS Outpatient MARYBETH SAN [facility] CARD R06.09 DYSPNEA ON EXERTION [id number] 01/05/2013 08:36:00 01/05/2013 11:10:00 DIS Outpatient [id number] 01/03/2013 11:26:00 01/03/2013 23:59:59 CLS Outpatient [id number] 2018 06:37:00 ACT Outpatient JUAN PABLO NAVA MD [facility] SDC LEFT NASAL ALAR LESION [id number] 09/18/2014 14:52:00 Document Registration
[2018-10-26] MEDS ORDERED: LACTATED RINGERS 1,000 ML IV PRN (06:51)
[2018-10-26 06:55] VITALS: BP 132/85
--- NOTE | 2018-10-26 07:06 | Progress Note-Pre Operative ---
Pre-Operative Progress Note H&P Reviewed The H&P was reviewed, patient examined and no changes noted. Date Seen by Provider: Oct 26, 2018 Time Seen by Provider: 06:45 Date H&P Reviewed: Oct 26, 2018 Time H&P Reviewed: 06:45 Pre-Operative Diagnosis: LEft NAsal Alar LEsion JUAN PABLO NAVA MD Oct 26, 2018 07:06
[2018-10-26] MEDS ORDERED: LIDOCAINE PF 2% 5 ML (XYLOCAINE) VIAL ONE (07:20)
[2018-10-26] MEDS ORDERED: ONDANSETRON 4 MG/2 ML (SDV) Z0FRAN ONE (07:20)
[2018-10-26] MEDS ORDERED: fentaNYL INJECTION 100 MCG/2 ML AMP ONE (07:20)
[2018-10-26] MEDS ORDERED: proPOfol 200 MG/20 ML (DIPRIVAN) VIAL IV ONE (07:20)
[2018-10-26] MEDS ORDERED: MIDAZOLAM 2 MG/2 ML (VERSED) VIAL ONE (07:20)
[2018-10-26] MEDS ORDERED: ROCURONIUM 10 MG/ML 5 ML SYRINGE IV ONE (07:20)
[2018-10-26] MEDS ORDERED: DEXAMETHASONE 10 MG/ML (DECADRON) 1 ML VIAL ONE (07:20)
[2018-10-26] MEDS ORDERED: SEVOFLURANE (ULTANE) 15 ML INHAL SOLN ONE (07:20)
[2018-10-26] MEDS ORDERED: MUPIROCIN 2% OINT 22 GM (BACTROBAN) TUBE ONE (07:33)
[2018-10-26] MEDS ORDERED: LIDOCAINE/EPI 1%-1:100,000 (XYLOCAINE) 20ML ONE (07:33)
[2018-10-26] MEDS ORDERED: BSS 15 ML ONE (08:30)
--- NOTE | 2018-10-26 08:44 | Progress Note-Post Operative ---
Post-Operative Progess Note Surgeon (s)/Revenue Tax Specialist (s) Surgeon JUAN PABLO NAVA MD Revenue Tax Specialist n/a Pre-Operative Diagnosis LEft NAsal Alar LEsion Post-Operative Diagnosis same Post-Op Procedure Note Date of Procedure: Oct 26, 2018 Name of Procedure Performed: Excision of Left Nasal Alar Lesion, REconsturction with Lateral Cheek Advancement Flap Description & Findings Description and Findings: n/a Anesthesia Type LMA Estimated Blood Loss minimal Packing none. Specimen(s) collected/removed left nasal ala lesion for frozen JUAN PABLO NAVA MD Oct 26, 2018 08:44
[2018-10-26] MEDS ORDERED: HYDROcodone/APAP 5 MG/325 MG (LORTAB) TAB PO PRN (08:45)
[2018-10-26] MEDS ORDERED: ACETAMINOPHEN 325 MG TABLET PO PRN (08:45)
--- NOTE | 2018-10-26 08:59 | NUR ---
Initial visit with pt's Sharon while pt was in surgery. Pt and are Religious and appreciate tunnel drier operator support. Offered active listening and compassionate presence.
[2018-10-26 09:45] VITALS: BP 128/83
[2018-10-26] MEDS ORDERED: ACHD5005 PO (09:57)
[2018-10-26] MEDS ORDERED: CEPH-507 PO (09:57)
[2018-10-26 10:15] VITALS: BP 128/74
[2018-10-26 10:45] VITALS: BP 134/77
[2018-10-26 10:50] VITALS: BP 134/77
--- NOTE | 2018-10-26 12:50 | Anesthesia-General Post-Op ---
General Patient Condition Mental Status/LOC: Same as Preop Cardiovascular: Satisfactory Nausea/Vomiting: Absent Respiratory: Satisfactory Pain: Controlled Complications: Absent Post Op Complications Complications None Follow Up Care/Instructions Patient Instructions None needed. Anesthesia/Patient Condition Patient Condition Patient is doing well, no complaints, stable vital signs, no apparent adverse anesthesia problems. No complications reported per nursing. RIAZ OCHOA CRNA Oct 26, 2018 12:50
== END 2018-10-26 10:50 | disposition home or self-care (01) ==
LOC: SDC 06:37
PROVIDERS: ATTEND Otolaryngology Otolaryngology/Facial Plastic Surgery
DX: C44.311 Basal cell carcinoma of skin of nose (principal)
CPT/HCPCS: 88305; 88331; 88332

== ENCOUNTER → 2019-03-20 | Outpatient (CLI) | payer BC ==
[~2019-03-20] MED LIST changes: +ACHD5005 PO; +CEPH-507 PO
--- NOTE | 2019-03-20 10:55 | Diagnostic Imaging Report ---
Indication: Shoulder pain 3 views were obtained. Findings: There is mild arthrosis of the acromioclavicular joint. No fracture or dislocation. Landmarks clear. Soft tissues are unremarkable. Impression: Arthrosis of the acromioclavicular joint otherwise unremarkable. Dictated by: Dictated on workstation # [id number]
== END ==
LOC: RAD 09:50
PROVIDERS: ATTEND Nurse Practitioner Family
DX: M19.011 Primary osteoarthritis, right shoulder (principal)
CPT/HCPCS: 73030

== ENCOUNTER → 2019-04-23 | Outpatient (CLI) | payer BC ==
--- NOTE | 2019-04-23 09:59 | Diagnostic Imaging Report ---
EXAMINATION: Magnetic resonance imaging of the right shoulder without contrast. DATE: April 23, 2019. COMPARISON: Right shoulder radiographs March 20, 2019. HISTORY: 58-year-old male, right shoulder pain. TECHNIQUE: Magnetic Resonance Imaging sequences were performed of the shoulder without contrast. FINDINGS: ROTATOR CUFF, LIGAMENTS, TENDONS, AND MUSCLES: There is infraspinatus tendinopathy. The supraspinatus, teres minor, and subscapularis tendons are intact. There is normal rotator cuff muscle bulk and signal. LONG HEAD OF BICEPS: The biceps labral attachment and long head of the biceps tendon is intact. The long head of the biceps tendon is normally positioned within the bicipital groove. GLENOHUMERAL JOINT: The humeral head is well positioned relative to the glenoid. There is some fluid signal in the region of the posterior inferior labrum which is questionable for a labral tear. There is no paralabral cyst. The articular cartilage is grossly intact. There is no joint effusion. ACROMIOCLAVICULAR JOINT: The acromioclavicular joint is normally aligned. The coracoclavicular and coracoacromial ligaments are intact. There are mild acromioclavicular degenerative changes with osteophytes extending 2 mm below the joint margin. BONE: The bones all have normal configuration. There is degenerative related marrow edema adjacent to the acromioclavicular joint. There is no acute fracture, bone contusion, or evidence of osteonecrosis. BURSAE AND SOFT TISSUES: The bursae and additional soft tissues are unremarkable in appearance. IMPRESSION: 1. Infraspinatus tendinopathy. Negative for full-thickness rotator cuff tendon tear. 2. Mild acromioclavicular degenerative changes with 2 mm undersurface osteophytes. 3. Fluid signal in the region of the posterior inferior labrum questionable for labral tear without paralabral cyst. Additional glenohumeral joint evaluation is unremarkable. 4. No acute fracture, bone contusion, or evidence of osteonecrosis. Dictated by: Dictated on workstation # [id number]
== END ==
LOC: RAD 07:38
PROVIDERS: ATTEND Nurse Practitioner Family
DX: M75.81 Other shoulder lesions, right shoulder (principal); M19.011 Primary osteoarthritis, right shoulder; M25.711 Osteophyte, right shoulder
CPT/HCPCS: 73221